=== PATIENT | male | born 1955 | race Caucasian/White ===

== ENCOUNTER 2018-06-07 18:39 | Observation (INO) | payer BC ==
[2018-06-07] MEDS ORDERED: ASPIRIN 81 MG CHEWABLE TABLET PO ONE (18:48)
[2018-06-07] MEDS ORDERED: DILTIAZEM 25MG/5ML VIAL IV ONE (18:51)
--- NOTE | 2018-06-07 18:55 | Emergency Department Record ---
History of Present Illness - General Stated Complaint: CHEST PAIN Time Seen by Provider: 06/07/18 18:48 Source: Patient Mode of Arrival: Ambulatory Limitations: No limitations - History of Present Illness Initial Comments: 62 yo male presents to ED for evaluation of palpitations and chest pain symptoms that began this evening. Patient reports a history of similar symptoms , was referred to Dr. Owusu's PA for further evaluation and was started on Metoprolol. Patient has not been seen and evaluated previously while he was having palpitations, and denies previous diagnosis. Patient reports chest discomfort with his symptoms as well. Patient denies previous heart problems, does report a history of HTN, elevated cholesterol, and does smoke. MD Complaint: Chest pain Onset/Timin -: Hour(s) Pain Radiation: None Severity: Moderate Quality: Heaviness Consistency: Intermittent Improves With: Nothing Worsens With: Nothing - Related Data Home Medications Medication Instructions Recorded Confirmed Last Taken Amlodipine Besylate 5 mg PO DAILY 06/07/18 06/07/18 06/07/18 Aspirin 325 mg PO DAILY 06/07/18 06/07/18 Unknown Atorvastatin Calcium 20 mg PO QHS 06/07/18 06/07/18 06/06/18 Enalapril Maleate 10 mg PO DAILY 06/07/18 06/07/18 Unknown Melatonin 10 mg PO QHS 06/07/18 06/07/18 Unknown Metoprolol Succinate 25 mg PO DAILY 06/07/18 06/07/18 06/07/18 Pantoprazole Sodium 40 mg PO DAILY 06/07/18 06/07/18 06/07/18 Sucralfate [Carafate] 1 g PO BID 06/07/18 06/07/18 Unknown Temazepam 15 mg PO QHS 06/07/18 06/07/18 Unknown Allergies Allergy/AdvReac Type Severity Reaction Status Date / Time No Known Drug Allergies Allergy Verified 06/07/18 19:08 Review of Systems Constitutional: Denies: Chills, Fever, Malaise, Night sweats Eyes: Denies: Eye discharge, Eye pain ENT: Denies: Congestion, Ear pain, Epistaxis Respiratory: Reports: Dyspnea. Denies: Cough Cardiovascular: Reports: Chest pain, Palpitations. Denies: Dyspnea on exertion Endocrine: Denies: Fatigue, Heat or cold intolerance Gastrointestinal: Denies: Abdominal pain, Nausea, Vomiting Genitourinary: Denies: Incontinence, Retention Musculoskeletal: Denies: Arthralgia, Back pain Skin: Denies: Bruising, Change in color Neurological: Denies: Abnormal gait, Confusion, Headache, Seizure Psychiatric: Denies: Anxiety Hematological/Lymphatic: Denies: Anemia, Blood Clots Physical Exam - General General Appearance: Alert, Oriented x3, Cooperative, Moderate distress Limitations: No limitations - Head Head exam: Atraumatic, Normocephalic, Normal inspection Head exam detail: negative: Abrasion, Contusion, Brandon's sign, General tenderness, Hematoma, Laceration - Eye Eye exam: Normal appearance. negative: Conjunctival injection, Periorbital swelling, Periorbital tenderness, Scleral icterus - ENT Ear exam: negative: Auricular hematoma, Auricular trauma Nasal Exam: negative: Active bleeding, Discharge, Dried blood, Foreign body Mouth exam: negative: Drooling, Laceration, Tongue elevation - Neck Neck exam: Normal inspection. negative: Meningismus, Tenderness - Respiratory Respiratory exam: Normal lung sounds bilaterally. negative: Rales, Respiratory distress, Rhonchi, Stridor - Cardiovascular Cardiovascular Exam: Irregular rhythm, Tachycardia - GI/Abdominal GI/Abdominal exam: Soft. negative: Rebound, Rigid, Tenderness - Rectal Rectal exam: Deferred - exam: Deferred - Extremities Extremities exam: Normal inspection. negative: Calf tenderness, Pedal edema, Tenderness - Back Back exam: Denies: CVA tenderness (R), CVA tenderness (L) - Neurological Neurological exam: Alert, Normal gait, Oriented X3 - Psychiatric Psychiatric exam: Anxious - Skin Skin exam: Normal color. negative: Abrasion Type of lesion: negative: abrasion Course - Reevaluation(s) Reevaluation #1: 06/07/18 18:50 EKG: Atrial Fibrillation 141 Normal axis, irregular R-R intervals T wave inversions III, ST changes V5/V6, likely rate related. patient was seen and examined, cardizem bolus and qttp ordered to infuse to achieve rate control for atrial fibrillation. Reevaluation #2: 06/07/18 19:36 Laboratory studies were reviewed and are grossly unremarkable for an acute process. Reevaluation #3: 06/07/18 19:39 Case was discussed with Sneha Templeton, will accept admission at this time. Will initiate treatment with Heparin as well. Reevaluation #4: 06/07/18 20:24 CXR: No acute process identified. Repeat pulse 90's-107 and rate controlled. Medical Decision Making - Lab Data Result diagrams: 06/07/18 18:55 06/07/18 18:55 Critical Care Time Critical Care Time: Yes Total Critical Care Time: 45 Critical Care Time: Diagnosis and treatment for atrial fibrillation with rapid ventricular response , exclusion of ACS. Disposition Disposition: Admit Clinical Impression: Atrial fibrillation Qualifiers: Atrial fibrillation type: paroxysmal Qualified Code(s): I48.0 - Paroxysmal atrial fibrillation Chest pain Qualifiers: Chest pain type: unspecified Qualified Code(s): R07.9 - Chest pain, unspecified Disposition: Still a Patient at [facility] Decision to Admit: Admit from ER Decision to Admit Date: 06/07/18 Decision to Admit Time: 19:39 Condition: (2) Stable Time of Disposition: 19:39 Quality - Quality Measures Quality Measures: N/A - Blood Pressure Screening Does Patient Have Any of the Following: Active Dx of HTN Blood Pressure Classification: Hypertensive Reading Systolic Measurement: 136 Diastolic Measurement: 113 Screening for High Blood Pressure: Patient Exclusion, Hx of HTN [[id number]]
[2018-06-07] MEDS ORDERED: 0.9 % SODIUM CHLORIDE 1000ML 1,000 ML IV SCH (19:00)
[2018-06-07 19:04] LABS: BASO % 0.3 % (0-6); EOS % 1.7 % (0-6); GRAN % 71.1 % (47-80); HEMATOCRIT 49.2 % (42.0-52.0); HEMOGLOBIN 16.5 gm/dl (14.0-18.0); LYMPH % 16.7 % (16-45); MEAN CELL VOLUME 86.9 fl (81-97); MEAN CORPUSCULAR HEMOGLOBIN 29.2 pg (27-33); MEAN CORPUSCULAR HGB CONC 33.5 g/dl (32-36); MONO % 10.2 % (0-9); PLATELET COUNT 331 K/uL (130-400); RED BLOOD COUNT 5.66 M/uL (4.40-5.70); RED CELL DISTRIBUTION WIDTH 13.7 % (11.5-14.5); WHITE BLOOD COUNT W/O DIFF 11.3 K/uL (4.2-12.2)
[2018-06-07] MEDS: DILTIAZEM HCL 125 MG in 0.9 % SODIUM CHLORIDE 100ML 100 ML IV SCH (19:04)
[2018-06-07 19:20] LABS: BLOOD UREA NITROGEN 13 mg/dL (8-23); CREATININE 0.9 mg/dL (0.7-1.2); EST GLOMERULAR FILTRATION RATE > 60 mL/min
[2018-06-07 19:21] LABS: TOTAL PROTEIN 6.5 g/dL (6.6-8.7)
[2018-06-07 19:23] LABS: GLUCOSE,RANDOM 111 mg/dL (74-109)
[2018-06-07 19:26] LABS: ALB/GLOB RATIO 1.8 (1.1-1.8); ALBUMIN 4.2 g/dL (4.0-5.0); ALKALINE PHOSPHATASE 68 U/L (40-129); ALT/SGPT 8 U/L (<41); AST/SGOT 19 U/L (10.0-50.0)
[2018-06-07 19:37] LABS: THYROID STIMULATING HORMONE 1.02 uIU/mL (0.270-4.20)
[2018-06-07] MEDS ORDERED: HEPARIN SODIUM 1000 UNIT/1 ML 10ML VIAL IVP ONE (19:42)
[2018-06-07] MEDS ORDERED: HEPARIN SODIUM/D5W 25,000 UNITS/500 ML BAG IV SCH (19:45)
[2018-06-07] MEDS ORDERED: 0.9 % SODIUM CHLORIDE 1000ML 1,000 ML IV PRN (21:24)
[2018-06-07] MEDS ORDERED: MELATONIN 5 MG TABLET PO SCH (22:00)
[2018-06-07] MEDS ORDERED: TEMAZEPAM 15 MG CAPSULE PO SCH (22:00)
[2018-06-07] MEDS ORDERED: ATORVASTATIN 20 MG TABLET PO SCH (22:00)
[2018-06-07] MEDS: SUCRALFATE 1 G/10 ML UD PO SCH (22:30)
[2018-06-08] MEDS: DILTIAZEM HCL 125 MG in 0.9 % SODIUM CHLORIDE 100ML 100 ML IV SCH (05:00)
[2018-06-08] MEDS ORDERED: PANTOPRAZOLE SODIUM 40 MG TABLET PO SCH ×2 (07:00→22:00)
[2018-06-08] MEDS: SUCRALFATE 1 G/10 ML UD PO SCH (07:35)
[2018-06-08] MEDS ORDERED: ENALAPRIL 5 MG TABLET PO SCH (10:00)
[2018-06-08] MEDS ORDERED: ASPIRIN 325 MG TABLET PO SCH (10:00)
[2018-06-08] MEDS ORDERED: UMECLIDINIUM BROMIDE (INCRUSE) 62.5MCG IH SCH (10:00)
[2018-06-08] MEDS ORDERED: AMLODIPINE BESYLATE 5MG TAB PO SCH (10:00)
[2018-06-08] MEDS ORDERED: METOPROLOL SUCC 25 MG TAB.ER PO SCH (10:00)
--- NOTE | 2018-06-08 10:14 | History & Physical ---
History of Present Illness - Date of Service Date of Service for History & Physical: 06/08/18 - History of Present Illness Admitting Diagnosis: Atrial Fibrillation with RVR. Chest pain History of Present Illness: Mr. Lopez is a 62 year-old male who presented to the ED on with complaint of palpitations and chest pain that began that evening. He reported that he had been experiencing intermittent palpitations for about 8 months prior. He was referred to cardiology by his PCP for palpitations, he saw Dr. Owusu's PA and was started on metoprolol. He had a stress test 04/21/18 and was found to have hypertensive response to exercise, no ischemia or arrhythmia. 24-hour holter monitor on 04/21/18 revealed normal findings, but 191 PVCs. His history includes HTN, hyperlipidemia, and smoking. In the ED, his pulse was 130-140s, BP 132/82, RR 20, 97% on room air. EKG demonstrated a fib, rate of 141, irregular R-R intervals, T wave inversions in lead III, ST changes V5/V6, likely rate related. Cardizem bolus and drip were started to control rate of a fib. Heparin gtt was started. CXR showed no acute process. He was admitted for continuation of cardizem and heparin drips to control a fib with RVR. 06/08/18 0920: Pt. is resting comfortably in bed. He states that his chest pain has improved, he is now experiencing only occasional palpitations. He remains in a-fib on tele, rate of 84 and irregular, BP 116/60, RR 18, 96% on room air. His first 2 sets of troponins were negative. His aptt was 36.7 this morning. Cardizem drip currently at 10mg/hour, heparin drip at 20ml/hour. Cardiology was consulted this morning for further evaluation. PCP: Dr. Hubbard Travel Screening - Travel/Exposure Within Last 30 Days Have you traveled within the last 30 days?: No - Travel/Exposure Within Last Year Have you traveled outside the [place] in the last year?: No - Additonal Travel Details Have you been exposed to anyone with a communicable illness?: No - Travel Symptoms Symptom Screening: None Review of Systems Constitutional: Denies: Chills, Fever, Malaise, Night sweats Eyes: Denies: Eye discharge, Eye pain ENT: Denies: Congestion, Ear pain, Epistaxis Respiratory: Reports: Dyspnea. Denies: Cough Cardiovascular: Reports: Chest pain, Palpitations. Denies: Dyspnea on exertion Endocrine: Denies: Fatigue, Heat or cold intolerance Gastrointestinal: Denies: Abdominal pain, Nausea, Vomiting Genitourinary: Denies: Incontinence, Retention Musculoskeletal: Denies: Arthralgia, Back pain Skin: Denies: Bruising, Change in color Neurological: Denies: Abnormal gait, Confusion, Headache, Seizure Psychiatric: Denies: Anxiety Hematological/Lymphatic: Denies: Anemia, Blood Clots Past Medical History - SOCIAL HISTORY Smoking Status: Current every day smoker Alcohol Use: Rare Drug Use: None - RESPIRATORY Hx Respiratory Disorders: Yes Hx COPD: Yes (uses Spiriva inhaler daily and Proair inhaler PRN) Hx Sleep Apnea: Yes (uses CPAP) Hx of CPAP: Yes - CARDIOVASCULAR Hx Cardio Disorders: Yes Hx Abnormal EKG: Yes Hx Hypertension: Yes Comment:: high cholesterol - NEURO Hx Neuro Disorders: No - GI Hx GI Disorders: Yes Hx Reflux: Yes - Hx Genitourinary Disorders: No - ENDOCRINE Hx Endocrine Disorders: No - MUSCULOSKELETAL Hx Musculoskeletal Disorders: No - PSYCH Hx Psych Problems: No - HEMATOLOGY/ONCOLOGY Hx Hematology/Oncology Disorders: No Family Medical History Any Significant Family History?: No H&P Meds/Allergies - Allergies Allergies: Allergies Allergy/AdvReac Type Severity Reaction Status Date / Time No Known Drug Allergies Allergy Verified 06/07/18 19:08 - Home Medications Home Medications Medication Instructions Recorded Confirmed Last Taken Amlodipine Besylate 5 mg PO DAILY 06/07/18 06/07/18 06/07/18 Aspirin 325 mg PO DAILY 06/07/18 06/07/18 Unknown Atorvastatin Calcium 20 mg PO QHS 06/07/18 06/07/18 06/06/18 Enalapril Maleate 10 mg PO DAILY 06/07/18 06/07/18 Unknown Metoprolol Succinate 25 mg PO DAILY 06/07/18 06/07/18 06/07/18 Pantoprazole Sodium 40 mg PO QHS 06/07/18 06/08/18 06/07/18 Tiotropium [place] [Spiriva 2 puff IH DAILY 06/07/18 06/07/18 06/07/18 06:00 Respimat] 2 puffs Temazepam 30 mg PO QHS 06/08/18 06/08/18 Unknown - Active Medications Active Medications: Current Medications Amlodipine Besylate (Norvasc) 5 mg PO DAILY [facility] Aspirin (Aspirin, Regular) 325 mg PO DAILY [facility] Atorvastatin Calcium (Lipitor) 20 mg PO QHS [facility] Last Admin: 06/07/18 22:29 Dose: 20 mg Enalapril Maleate (Vasotec) 10 mg PO DAILY [facility] Diltiazem HCl 125 mg/ Sodium (Chloride) 125 mls @ 10 mls/hr IV TITRATE JEAN; Protocol Last Titration: 06/08/18 05:00 Dose: Infused Heparin Sodium/Dextrose (Heparin Sodium/D5w) 25,000 units in 500 mls @ 1,000 mls/min IV TITRATE JEAN; Protocol Last Admin: 06/07/18 19:56 Dose: 10.02 unit/kg/hr, 20 mls/hr Sodium Chloride () 1,000 mls @ 42 mls/hr IV .[id number] PRN PRN Reason: LARGE VOLUME IV Metoprolol Succinate (Toprol Xl) 25 mg PO DAILY [facility] Pantoprazole Sodium (Protonix) 40 mg PO QHS [facility] Temazepam (Restoril) 30 mg PO QHS [facility] Physical Exam - Vital Signs Vital Signs: Vital Signs - Last 24 Hrs Temp Pulse Pulse Pulse Resp BP BP 06/08/18 08:39 96.1 F L 47 L 18 116/60 06/08/18 07:49 80 16 06/08/18 03:00 97.8 F 65 16 126/65 06/08/18 01:30 98.1 F 87 17 155/97 06/07/18 23:30 99.1 F 89 88 18 103/61 06/07/18 21:24 98.0 F 78 16 140/79 06/07/18 21:08 104 H 12 126/67 06/07/18 20:47 117 H 13 125/76 06/07/18 19:14 140 H 20 132/82 06/07/18 19:11 131 H 18 134/106 06/07/18 19:06 136 H 20 136/113 Pulse Ox 06/08/18 08:39 96 06/08/18 07:49 06/08/18 03:00 99 06/08/18 01:30 94 L 06/07/18 23:30 94 L 06/07/18 21:24 96 06/07/18 21:08 97 06/07/18 20:47 96 06/07/18 19:14 97 06/07/18 19:11 96 06/07/18 19:06 97 - General General Appearance: Alert, Oriented x3, Cooperative, No acute distress Limitations: No limitations - Head Head exam: Atraumatic, Normocephalic, Normal inspection Head exam detail: negative: Abrasion, Contusion, Brandon's sign, General tenderness, Hematoma, Laceration - Eye Eye exam: Normal appearance. negative: Conjunctival injection, Periorbital swelling, Periorbital tenderness, Scleral icterus - ENT Ear exam: negative: Auricular hematoma, Auricular trauma Nasal Exam: negative: Active bleeding, Discharge, Dried blood, Foreign body Mouth exam: negative: Drooling, Laceration, Tongue elevation - Neck Neck exam: Normal inspection. negative: Meningismus, Tenderness - Respiratory Respiratory exam: Normal lung sounds bilaterally. negative: Rales, Respiratory distress, Rhonchi, Stridor - Cardiovascular Cardiovascular Exam: Irregular rhythm, Tachycardia - GI/Abdominal GI/Abdominal exam: Soft. negative: Rebound, Rigid, Tenderness - Rectal Rectal exam: Deferred - exam: Deferred - Extremities Extremities exam: Normal inspection. negative: Calf tenderness, Pedal edema, Tenderness - Back Back exam: Denies: CVA tenderness (R), CVA tenderness (L) - Neurological Neurological exam: Alert, Normal gait, Oriented X3 - Psychiatric Psychiatric exam: Anxious - Skin Skin exam: Normal color. negative: Abrasion Type of lesion: negative: abrasion Results - Labs Result Diagrams: 06/07/18 18:55 06/07/18 18:55 Labs Last 24 Hours: Laboratory Results - last 24 hr 06/07/18 06/07/18 06/08/18 18:55 18:55 03:00 WBC 11.3 RBC 5.66 Hgb 16.5 Hct 49.2 MCV 86.9 MCH 29.2 MCHC 33.5 RDW 13.7 Plt Count 331 MPV 9.0 Gran % 71.1 Lymphocytes % 16.7 Monocytes % 10.2 H Eosinophils % 1.7 Basophils % 0.3 APTT Sodium 143 Potassium 3.7 Chloride 103 Carbon Dioxide 23.0 Anion Gap 17.0 H BUN 13 Creatinine 0.9 Estimated GFR > 60 Random Glucose 111 H Calcium 9.2 Total Bilirubin 0.40 AST 19 ALT 8 Alkaline Phosphatase 68 Troponin T < 0.010 < 0.010 Total Protein 6.5 L Albumin 4.2 Globulin 2.3 Albumin/Globulin Ratio 1.8 TSH 1.02 06/08/18 03:00 WBC RBC Hgb Hct MCV MCH MCHC RDW Plt Count MPV Gran % Lymphocytes % Monocytes % Eosinophils % Basophils % APTT 36.7 Sodium Potassium Chloride Carbon Dioxide Anion Gap BUN Creatinine Estimated GFR Random Glucose Calcium Total Bilirubin AST ALT Alkaline Phosphatase Troponin T Total Protein Albumin Globulin Albumin/Globulin Ratio TSH - Imaging and Cardiology Chest x-ray Status: Pending VTE H&P Assessment - Risk for VTE Risk for VTE: Yes Risk Level: High Risk Assessment Date: 06/08/18 Risk Assessment Time: 10:58 VTE Orders Placed or Will Be Placed: Yes Plan - Detailed Diagnosis and Plan (1) Atrial fibrillation Current Visit: Yes Status: Acute Qualifiers: Atrial fibrillation type: paroxysmal Qualified Code(s): I48.0 - Paroxysmal atrial fibrillation Base Code: I48.91 - UNSPECIFIED ATRIAL FIBRILLATION Comment: 06/08/18: -A fib with RVR upon presentation to ED -Cardizem drip at 10mg/hour and heparin drip at 20ml/hr (25,000 units/500ml) -Pt. remains in a fib on tele, rate mid 80's -Cardiology consult ordered for further evaluation (2) Chest pain Current Visit: Yes Status: Acute Qualifiers: Chest pain type: unspecified Qualified Code(s): R07.9 - Chest pain, unspecified Base Code: R07.9 - CHEST PAIN, UNSPECIFIED Comment: 06/08/18: -Chest pain resolved per patient -First 2 sets of troponins negative for elevation -cardiology consult ordered (3) Hypertension Current Visit: Yes Status: Acute Base Code: I10 - ESSENTIAL (PRIMARY) HYPERTENSION Comment: 06/08/18: -Hx of HTN, hypertension with exercise per stress test on 04/21/18 -Continuing home meds: enalapril 10mg daily, amlodipine 5mg daily, metoprolol 25mg daily -Will continue to monitor tele and vitals (4) At risk for deep venous thrombosis Current Visit: Yes Status: Acute Base Code: Z91.89 - OTH PERSONAL RISK FACTORS, NOT ELSEWHERE CLASSIFIED Comment: 06/08/18: -High risk for DVT due to afib with RVR -Heparin gtt at 20ml/hr (25,000 units/500ml bag) (5) Full code status Current Visit: Yes Status: Acute Base Code: Z78.9 - OTHER SPECIFIED HEALTH STATUS Comment: : -Pt. is a full code
--- NOTE | 2018-06-08 11:16 | Inpatient Certification ---
Inpatient Certification Admit to inpatient care: Based on my medical assessment, after consideration of patient's risk factors (age, co-morbidities and patient presenting symptoms and acuity), I expect that this patient will remain in the hospital greater than or equal to two midnights and that the services needed warrant inpatient care because: Patient Risk Factors: [age, comorbidities] Estimated length of stay: [24-48 hours] The patient may reasonably be expected to be discharged or transferred to a hospital within 96 hours after admission to [facility]. Services needed: [IV antiarrythmics and cardiology consult] Post hospital care (if known): [] I certify that my determination is in accordance with my understanding of Medicare requirements for reasonable and necessary inpatient services. 06/08/18 11:15
--- NOTE | 2018-06-08 11:44 | RADIOLOGY REPORT ---
EXAM: PORTABLE CHEST HISTORY: DIFFICULTY IN BREATHING. TECHNIQUE: A portable upright view of the chest was performed. FINDINGS: The heart size is normal. The lung reed are clear. No infiltrate or pleural effusion. Postop surgical change of the right shoulder girdle. IMPRESSION: NO ACUTE PULMONARY DISEASE PROCESS. JOB NUMBER: [id number] MTDD
--- NOTE | 2018-06-08 17:04 | Discharge Summary ---
Providers Discharge Summary Date: 06/08/18 Date of admission: 06/07/18 21:23 Expected Date of Discharge: 06/08/18 Attending physician: ALVIN SCHMIDT Primary care physician: MUMTAZ HUBBARD D.O. Consults: Consult Orders 06/08/18 08:40 Consult - Cardiology NOW Consulting Provider: YOANDY ADAMSON Physician Instructions: Reason For Exam: New onset a-fib with RVR Does pt have current kitchen bath designer?: Kat Comment: Has seen Kat SPEAR Physical Exam - Vital Signs Vital Signs: Vital Signs - Last 24 Hrs Temp Pulse Pulse Pulse Resp BP BP 06/08/18 15:00 65 18 122/56 06/08/18 11:45 55 L 106/56 06/08/18 10:28 81 06/08/18 10:24 84 06/08/18 08:39 96.1 F L 47 L 18 116/60 06/08/18 07:49 80 16 06/08/18 03:00 97.8 F 65 16 126/65 06/08/18 01:30 98.1 F 87 17 155/97 06/07/18 23:30 99.1 F 89 88 18 103/61 06/07/18 21:24 98.0 F 78 16 140/79 06/07/18 21:08 104 H 12 126/67 06/07/18 20:47 117 H 13 125/76 06/07/18 19:14 140 H 20 132/82 06/07/18 19:11 131 H 18 134/106 06/07/18 19:06 136 H 20 136/113 Pulse Ox 06/08/18 15:00 97 06/08/18 11:45 06/08/18 10:28 06/08/18 10:24 06/08/18 08:39 96 06/08/18 07:49 06/08/18 03:00 99 06/08/18 01:30 94 L 06/07/18 23:30 94 L 06/07/18 21:24 96 06/07/18 21:08 97 06/07/18 20:47 96 06/07/18 19:14 97 06/07/18 19:11 96 06/07/18 19:06 97 - General General Appearance: Alert, Oriented x3, Cooperative, No acute distress Limitations: No limitations - Head Head exam: Atraumatic, Normocephalic, Normal inspection Head exam detail: negative: Abrasion, Contusion, Brandon's sign, General tenderness, Hematoma, Laceration - Eye Eye exam: Normal appearance. negative: Conjunctival injection, Periorbital swelling, Periorbital tenderness, Scleral icterus - ENT Ear exam: negative: Auricular hematoma, Auricular trauma Nasal Exam: negative: Active bleeding, Discharge, Dried blood, Foreign body Mouth exam: negative: Drooling, Laceration, Tongue elevation - Neck Neck exam: Normal inspection. negative: Meningismus, Tenderness - Respiratory Respiratory exam: Normal lung sounds bilaterally. negative: Rales, Respiratory distress, Rhonchi, Stridor - Cardiovascular Cardiovascular Exam: Irregular rhythm, Tachycardia - GI/Abdominal GI/Abdominal exam: Soft. negative: Rebound, Rigid, Tenderness - Rectal Rectal exam: Deferred - exam: Deferred - Extremities Extremities exam: Normal inspection. negative: Calf tenderness, Pedal edema, Tenderness - Back Back exam: Denies: CVA tenderness (R), CVA tenderness (L) - Neurological Neurological exam: Alert, Normal gait, Oriented X3 - Psychiatric Psychiatric exam: Anxious - Skin Skin exam: Normal color. negative: Abrasion Type of lesion: negative: abrasion Hospitalization - Hospitalization Admission Diagnosis: Atrial Fibrillation with RVR. Chest pain - Problem List/Discharge Diagnosis (1) Atrial fibrillation Current Visit: Yes Status: Acute Discharge Diagnosis: Atrial fibrillation type: paroxysmal Qualified Code(s): I48.0 - Paroxysmal atrial fibrillation Base Code: I48.91 - UNSPECIFIED ATRIAL FIBRILLATION Comment: 06/08/18: -A fib with RVR converted to NSR at 1130 today -Cardizem drip was decreased to 5mg/hour, heparin drip at 20ml/hr (25,000 units/ 500ml) -Per cardiology- will d/c home with antiarrythmic- Flecainide (Rx written by Dr. Adamson), no need for anticoagulation since afib was less than 24 hours, okay to continue daily ASA -Plan to f/u with cardiology for echo OP (2) Chest pain Current Visit: Yes Status: Acute Discharge Diagnosis: Chest pain type: unspecified Qualified Code(s): R07.9 - Chest pain, unspecified Base Code: R07.9 - CHEST PAIN, UNSPECIFIED Comment: 06/08/18: -Chest pain resolved per patient -First 2 sets of troponins negative for elevation -cardiology consult ordered (3) Hypertension Current Visit: Yes Status: Acute Base Code: I10 - ESSENTIAL (PRIMARY) HYPERTENSION Comment: 06/08/18: -Hx of HTN, hypertension with exercise per stress test on 04/21/18 -Continuing home meds: enalapril 10mg daily, amlodipine 5mg daily, metoprolol 25mg daily -Will continue to monitor tele and vitals (4) At risk for deep venous thrombosis Current Visit: Yes Status: Acute Base Code: Z91.89 - OTH PERSONAL RISK FACTORS, NOT ELSEWHERE CLASSIFIED Comment: 06/08/18: -High risk for DVT due to afib with RVR -Heparin gtt at 20ml/hr (25,000 units/500ml bag) (5) Full code status Current Visit: Yes Status: Acute Base Code: Z78.9 - OTHER SPECIFIED HEALTH STATUS Comment: : -Pt. is a full code - Disposition Pt. to d/c home, plan to f/u with cardiology outpatient for echo - Hospitalization Course Disposition: Home, Self-Care Hospital Course: Mr. Lopez is a 62 year-old male who presented to the ED on with complaint of palpitations and chest pain that began that evening. He reported that he had been experiencing intermittent palpitations for about 8 months prior. He was referred to cardiology by his PCP for palpitations, he saw Dr. Adamson's PA and was started on metoprolol. He had a stress test 04/21/18 and was found to have hypertensive response to exercise, no ischemia or arrhythmia. 24-hour holter monitor on 04/21/18 revealed normal findings, but 191 PVCs. His history includes HTN, hyperlipidemia, and smoking. In the ED, his pulse was 130-140s, BP 132/82, RR 20, 97% on room air. EKG demonstrated a fib, rate of 141, irregular R-R intervals, T wave inversions in lead III, ST changes V5/V6, likely rate related. Cardizem bolus and drip were started to control rate of a fib. Heparin gtt was started. CXR showed no acute process. He was admitted for continuation of cardizem and heparin drips to control a fib with RVR. 10/16/18 0920: Pt. is resting comfortably in bed. He states that his chest pain has improved, he is now experiencing only occasional palpitations. He remains in a-fib on tele, rate of 84 and irregular, BP 116/60, RR 18, 96% on room air. His first 2 sets of troponins were negative. His aptt was 36.7 this morning. Cardizem drip currently at 10mg/hour, heparin drip at 20ml/hour. Cardiology was consulted this morning for further evaluation. 06/08/18 1700: -A fib with RVR converted to NSR at 1130 today -Cardizem drip was decreased to 5mg/hour, heparin drip at 20ml/hr (25,000 units/ 500ml) -Per cardiology- will d/c home with antiarrhythmic- Flecainide (Rx written by Dr. Adamson), no need for anticoagulation since afib was less than 24 hours, okay to continue daily ASA -Plan to f/u with cardiology for echo OP PCP: Dr. Hubbard Procedures: Imaging and X-Rays 06/07/18 18:48 CHEST 1 VIEW [RAD] Stat Cardiology Procedures 06/07/18 19:18 EKG NOW 06/07/18 21:24 Freelance Displayer .Continuous Abnormal Labs: Abnormal Lab Results 06/07/18 06/07/18 Range/Units 18:55 18:55 Monocytes % 10.2 H (0-9) % Anion Gap 17.0 H (7-16) Random Glucose 111 H (74-109) mg/dL Total Protein 6.5 L (6.6-8.7) g/dL Condition at Discharge: (2) Stable Discharge Diagnosis: Afib VTE Discharge VTE Reason For No Overlap Therapy: Not Indicated (Per cardiology- no prophylaxis needed for afib since less than 24 hours) Discharge Medications - Discharge Medications Prescriptions: Flecainide Acetate 50 mg PO BID #60 tablet Home Medications: Ambulatory Orders Amlodipine Besylate 5 mg PO DAILY 06/07/18 [Last Taken 06/07/18] Aspirin 325 mg PO DAILY 06/07/18 [Last Taken Unknown] Atorvastatin Calcium 20 mg PO QHS 06/07/18 [Last Taken 06/06/18] Enalapril Maleate 10 mg PO DAILY 06/07/18 [Last Taken Unknown] Metoprolol Succinate 25 mg PO DAILY 06/07/18 [Last Taken 06/07/18] Pantoprazole Sodium 40 mg PO QHS 06/07/18 [Last Taken 06/07/18] Tiotropium [place] [Spiriva Respimat] 2 puff IH DAILY 06/07/18 [Last Taken 06/07 06:00 2 puffs] Flecainide Acetate 50 mg PO BID #60 tablet 06/08/18 [Last Taken Unknown] Temazepam 30 mg PO QHS 06/08/18 [Last Taken Unknown] Discharge Plan - Discharge Instructions Activity at Discharge: Resume Usual Activities As Tolerated Diet at Discharge: Regular Diet Quality Measures - Quality Measures Quality Measures: Atrial Fibrillation & Atrial Flutter: Chronic Anticoagulation Therapy, Documentation of Current Medications in Medical Record, Screening for High Blood Pressure and F/U Documented - Current Medications Quality Measure: Measure #130: Documentation of Current Medications Documentation of Current Medications: <Current Medications Documented/Reviewed> [G8427] - Blood Pressure Screening Quality Measure: Screening for High Blood Pressure and Follow-Up Documented Does Patient Have Any of the Following: Active Dx of HTN Blood Pressure Classification: Hypertensive Reading Systolic Measurement: 136 Diastolic Measurement: 113 Screening for High Blood Pressure: Patient Exclusion, Hx of HTN [G9744] - Atrial Fibrillation and Atrial Flutter Quality Measure: Atrial Fibrillation & Atrial Flutter: Chronic Anticoagulation Therapy Does Patient Have Any of the Following: No CHADS2 Risk Stratification: Hypertension Risk Stratification Summary: No risk factors or only one moderate risk factor exists. [G8970] Anticoagulation Therapy: Patient Not Eligible [G8970] - Elder Abuse Suspicion Index EASI Reference Information: Katarina BRADY, Khushi C, Deedee D, Henok Wharton.Development and validation of a tool to assist physicians identification of elder abuse: The Elder Abuse Suspicion Index (EASI ). Journal of Elder Abuse and Neglect, 2008; 20 (3): 276-300.
[2018-06-08] MEDS ORDERED: TEMAZEPAM 15 MG CAPSULE PO SCH (22:00)
== END 2018-06-08 18:00 | disposition home or self-care (01) ==
LOC: ER 18:39 → MEDSURG 21:23
PROVIDERS: ADMIT Internal Medicine; ATTEND Internal Medicine
DX: I48.0 Paroxysmal atrial fibrillation (principal); I10 Essential (primary) hypertension; E78.00 Pure hypercholesterolemia, unspecified; F17.210 Nicotine dependence, cigarettes, uncomplicated; J44.9 Chronic obstructive pulmonary disease, unspecified
CPT/HCPCS: 99291 ×2; 96365; 96366; 96375; 96368; 85025; 85730; 80053; 84443; 84484 ×2; 71045; 93005; 93010; G0378 ×2; 99220; J7030

== ENCOUNTER 2018-08-22 18:36 | Emergency (ER) | payer BC ==
--- NOTE | 2018-08-22 18:59 | Emergency Department Record ---
History of Present Illness - General Chief Complaint: Back Pain/Injury Stated Complaint: LOWER BACK PAIN Time Seen by Provider: 08/22/18 18:41 Source: Patient Mode of Arrival: Ambulatory Limitations: No limitations - History of Present Illness Initial Comments: 63 yo male presents to ED for evaluation of right lower back pain that has been present for approximately 10-14 days. Patient reports that he strained his back lifting fire-wood at that time, has been taking Skelaxin and Naprosyn intermittently for his pain symptoms without much improvement, although he reports that the medications are . Patient denies numbness over the groin, bladder/bowel incontinence or retention, or lower extremity weakness. Patient denies any midline lumbar pain on examination. MD Complaint: Back pain Onset/Timin -: Days(s) Similar Symptoms Previously: Yes Place: Home Severity: Moderate Quality: Aching Consistency: Intermittent Improves With: Sitting upright Context: Turning/twisting Associated Symptoms: Denies other symptoms Treatments Prior to Arrival: NSAIDS - Related Data Previous Rx's Medication Instructions Recorded Flecainide Acetate 50 mg PO BID #60 tablet 06/08/18 Diazepam [Valium] 5 mg PO Q8H PRN #12 tab 08/22/18 Naproxen [Naprosyn] 500 mg PO Q12H #30 tablet 08/22/18 Allergies Allergy/AdvReac Type Severity Reaction Status Date / Time No Known Drug Allergies Allergy Verified 08/22/18 18:53 Review of Systems Constitutional: Denies: Chills, Fever, Malaise, Night sweats Eyes: Denies: Eye discharge, Eye pain ENT: Denies: Congestion, Ear pain, Epistaxis Respiratory: Denies: Cough, Dyspnea Cardiovascular: Denies: Chest pain, Dyspnea on exertion Endocrine: Denies: Fatigue, Heat or cold intolerance Gastrointestinal: Denies: Abdominal pain, Nausea, Vomiting Genitourinary: Denies: Incontinence, Retention Musculoskeletal: Reports: Back pain. Denies: Arthralgia, Gout, Joint swelling Skin: Denies: Bruising, Change in color Neurological: Denies: Abnormal gait, Confusion, Headache, Tingling, Tremors Psychiatric: Denies: Anxiety Hematological/Lymphatic: Denies: Anemia, Blood Clots Past Medical History - SOCIAL HISTORY Smoking Status: Current every day smoker Drug Use: None - RESPIRATORY Hx Respiratory Disorders: Yes Hx COPD: Yes (uses Spiriva inhaler daily and Proair inhaler PRN) Hx Sleep Apnea: Yes (uses CPAP) Hx of CPAP: Yes - CARDIOVASCULAR Hx Cardio Disorders: Yes Hx Abnormal EKG: Yes Hx Hypertension: Yes Comment:: high cholesterol - NEURO Hx Neuro Disorders: No - GI Hx GI Disorders: Yes Hx Reflux: Yes - Hx Genitourinary Disorders: No - ENDOCRINE Hx Endocrine Disorders: No - MUSCULOSKELETAL Hx Musculoskeletal Disorders: No - PSYCH Hx Psych Problems: No - HEMATOLOGY/ONCOLOGY Hx Hematology/Oncology Disorders: No Physical Exam - General General Appearance: Alert, Oriented x3, Cooperative, Mild distress, Other ( Easily stands to ambulate on examination, pain appears well controlled at his baseline.) Limitations: No limitations - Eye Eye exam: Normal appearance. negative: Conjunctival injection, Periorbital swelling, Periorbital tenderness, Scleral icterus - ENT Ear exam: negative: Auricular hematoma, Auricular trauma Nasal Exam: negative: Active bleeding, Discharge, Dried blood, Foreign body Mouth exam: negative: Drooling, Laceration, Muffled voice, Tongue elevation - Neck Neck exam: Normal inspection. negative: Meningismus, Tenderness - Respiratory Respiratory exam: Normal lung sounds bilaterally. negative: Respiratory distress, Rhonchi, Stridor, Wheezes - Cardiovascular Cardiovascular Exam: Regular rate, Normal rhythm, Normal heart sounds - GI/Abdominal GI/Abdominal exam: Soft. negative: Rebound, Rigid, Tenderness - Rectal Rectal exam: Deferred - exam: Deferred - Extremities Extremities exam: negative: Pedal edema, Tenderness - Back Back exam: Reports: Paraspinal tenderness (TTP over the right lumbar paraveterbral muscles on examination, no rash present, no mildine pain on examination.). Denies: CVA tenderness (R), CVA tenderness (L) - Neurological Neurological exam: Alert, Normal gait, Oriented X3 - Psychiatric Psychiatric exam: Normal affect, Normal mood - Skin Skin exam: Normal color. negative: Abrasion Type of lesion: negative: abrasion Course - Reevaluation(s) Reevaluation #1: 08/22/18 19:05 Patient was seen and examined. Patient has no midline tenderness on examination to suggest compression fracture Patient has no historical features or physical examination features c/w acute spinal cord compression syndrome Based on the above, radiographs do not appears to be of benefit. Will treat the patient symptomatically with Valium and Naprosyn as directed with instructions for follow-up in 3-5 days with his PCP. Disposition Disposition: Discharge Clinical Impression: Low back strain Qualifiers: Encounter type: initial encounter Qualified Code(s): S39.012A - Strain of muscle, fascia and tendon of lower back, initial encounter Disposition: Home, Self-Care Condition: (2) Stable Instructions: Low Back Strain (ED) Additional Instructions: Return to ED if your symptoms worsen or if you have any concerns. Naprosyn and Valium as directed. Follow-up with your family doctor in 3-5 days as directed for re-evaluation. Prescriptions: Diazepam [Valium] 5 mg PO Q8H PRN #12 tab PRN Reason: Pain - Mod To Severe (5-10) Naproxen [Naprosyn] 500 mg PO Q12H #30 tablet Forms: Patient Portal Access Time of Disposition: 18:59 Quality - Quality Measures Quality Measures: N/A - Blood Pressure Screening Does Patient Have Any of the Following: Active Dx of HTN Blood Pressure Classification: Pre-Hypertensive BP Reading Systolic Measurement: 170 Diastolic Measurement: 88 Screening for High Blood Pressure: Patient Exclusion, Hx of HTN [G9744]
[2018-08-22] MEDS: DIAZEPAM 5 MG TABLET PO ONE ×2 (19:11→19:12)
== END 2018-08-22 19:24 | disposition home or self-care (01) ==
LOC: ER 18:36
DX: S39.012A Strain of muscle, fascia and tendon of lower back, initial encounter (principal); X50.9XXA Other and unspecified overexertion or strenuous movements or postures, initial encounter; I10 Essential (primary) hypertension; F17.210 Nicotine dependence, cigarettes, uncomplicated; Y93.H9 Activity, other involving exterior property and land maintenance, building and construction; Y92.009 Unspecified place in unspecified non-institutional (private) residence as the place of occurrence of the external cause
CPT/HCPCS: 99282

== ENCOUNTER 2018-09-12 00:23 | Observation (INO) | payer BC ==
--- NOTE | 2018-09-12 00:42 | Emergency Department Record ---
History of Present Illness - General Chief Complaint: Back Pain/Injury Stated Complaint: BACK PAIN Time Seen by Provider: 09/12/18 00:32 Source: Patient Mode of Arrival: Ambulatory Limitations: No limitations - History of Present Illness Initial Comments: pt stood up from chair and had increased pain in back that went down his legs and dropped him to the floor. he has no numbness and no difficulty with bowel or bladder except constipation from narcotics. he has had this pain for 3 months. he is in physical therapy. he has had xrays. he had a mri of his neck but not his lower back MD Complaint: Back pain Onset/Timin -: Minutes(s) Place: Home Radiation: Left leg, Right leg Severity scale (1-10): 8 Quality: Stabbing Consistency: Constant Worsens With: Movement Context: Unknown Associated Symptoms: Denies other symptoms Treatments Prior to Arrival: Acetaminophen Treatment Prior to Arrival Comment:: Tramadol 100mg about 1.5 hrs ago - Related Data Home Medications Medication Instructions Recorded Confirmed Last Taken Acetaminophen [Tylenol 325Mg] 650 mg PO Q6H 09/12/18 09/12/18 09/11/18 Naloxegol Oxalate [Movantik] 25 mg PO DAILY 09/12/18 09/12/18 Unknown Tramadol HCl [Ultram] 50 mg PO QID 09/12/18 09/12/18 09/11/18 Previous Rx's Medication Instructions Recorded Flecainide Acetate 50 mg PO BID #60 tablet 06/08/18 Naproxen [Naprosyn] 500 mg PO Q12H #30 tablet 08/22/18 Diazepam [Valium] 5 mg PO Q8H #10 tab 09/12/18 Hydrocodone/Acetaminophen [[place] 1 tab PO Q6H PRN #7 tab 09/12/18 5mg/325mg] Ibuprofen [Motrin 600Mg] 600 mg PO Q6H #20 tablet 09/12/18 Allergies Allergy/AdvReac Type Severity Reaction Status Date / Time hydrocodone AdvReac ITCHING Verified 09/12/18 00:28 Travel Screening - Travel/Exposure Within Last 30 Days Have you traveled within the last 30 days?: No - Travel Symptoms Symptom Screening: None Review of Systems Reviewed: No additional complaints except as noted below Constitutional: Reports: As per HPI. Denies: Chills, Fever, Malaise, Night sweats, Weakness, Weight change Eyes: Reports: As per HPI. Denies: Eye discharge, Eye pain, Photophobia, Vision change ENT: Reports: As per HPI. Denies: Congestion, Dental pain, Ear pain, Epistaxis , Hearing loss, Throat pain Respiratory: Reports: As per HPI. Denies: Cough, Dyspnea, Hemoptysis, Stridor, Wheezes Cardiovascular: Reports: As per HPI. Denies: Arrhythmia, Chest pain, Dyspnea on exertion, Edema, Murmurs, Orthopnea, Palpitations, Paroxysmal nocturnal dyspnea, Rheumatic Fever, Syncope Endocrine: Reports: As per HPI. Denies: Fatigue, Heat or cold intolerance, Polydipsia, Polyuria Gastrointestinal: Reports: As per HPI. Denies: Abdominal pain, Constipation, Diarrhea, Hematemesis, Hematochezia, Melena, Nausea, Vomiting Genitourinary: Reports: As per HPI. Denies: Dysuria, Frequency, Hematuria, Incontinence, Retention, Testicular pain, Testicular mass, Urgency Musculoskeletal: Reports: As per HPI, Back pain. Denies: Arthralgia, Gout, Joint swelling, Myalgia, Neck pain Skin: Reports: As per HPI. Denies: Bruising, Change in color, Change in hair/ nails, Lesions, Pruritus, Rash Neurological: Reports: As per HPI. Denies: Abnormal gait, Confusion, Headache, Numbness, Paresthesias, Seizure, Tingling, Tremors, Vertigo, Weakness Psychiatric: Reports: As per HPI. Denies: Anxiety, Auditory hallucinations, Depression, Homicidal thoughts, Suicidal thoughts, Visual hallucinations Hematological/Lymphatic: Reports: As per HPI. Denies: Anemia, Blood Clots, Easy bleeding, Easy bruising, Swollen glands Past Medical History - SOCIAL HISTORY Smoking Status: Current every day smoker - RESPIRATORY Hx Respiratory Disorders: Yes Hx COPD: Yes (uses Spiriva inhaler daily and Proair inhaler PRN) Hx Sleep Apnea: Yes (uses CPAP) Hx of CPAP: Yes - CARDIOVASCULAR Hx Cardio Disorders: Yes Hx Abnormal EKG: Yes Hx Chest Pain: (Heart cath 08/20/18) Hx Hypertension: Yes Hx Irregular Heartbeat: Yes (A-fib) Comment:: high cholesterol - NEURO Hx Neuro Disorders: No - GI Hx GI Disorders: Yes Hx Reflux: Yes - Hx Genitourinary Disorders: No - ENDOCRINE Hx Endocrine Disorders: No - MUSCULOSKELETAL Hx Musculoskeletal Disorders: Yes Hx Back Injury: Yes (07/11) Comment:: MRI neck-C7 problems 08/2018 - PSYCH Hx Psych Problems: No - HEMATOLOGY/ONCOLOGY Hx Hematology/Oncology Disorders: No Family Medical History Any Significant Family History?: Yes Hx Cancer: Mother, Brother/Sister Hx Heart Disease: Mother Physical Exam - General General Appearance: Alert, Oriented x3, Cooperative, Mild distress - Head Head exam: Normal inspection - Eye Eye exam: Normal appearance, PERRL, EOMI Pupils: Normal accommodation - ENT ENT exam: Normal exam, Mucous membranes moist, Normal external ear exam, Normal orophraynx Ear exam: Normal external inspection. negative: External canal tenderness Nasal Exam: Normal inspection. negative: Discharge, Sinus tenderness Mouth exam: Normal external inspection, Tongue normal Teeth exam: Normal inspection. negative: Dental caries Throat exam: Normal inspection. negative: Tonsillar erythema, Tonsillar exudate - Neck Neck exam: Normal inspection, Full ROM. negative: Tenderness - Respiratory Respiratory exam: Normal lung sounds bilaterally. negative: Respiratory distress - Cardiovascular Cardiovascular Exam: Regular rate, Normal rhythm, Normal heart sounds - GI/Abdominal GI/Abdominal exam: Soft, Normal bowel sounds. negative: Tenderness - Rectal Rectal exam: Deferred - exam: Deferred - Extremities Extremities exam: Normal inspection, Full ROM, Normal capillary refill. negative: Tenderness - Back Back exam: Reports: Normal inspection, Full ROM, Muscle spasm, Tenderness. Denies: Rash noted - Neurological Neurological exam: Alert, CN II-XII intact, Normal gait, Oriented X3 - Psychiatric Psychiatric exam: Normal affect, Normal mood - Skin Skin exam: Dry, Intact, Normal color, Warm Course Vital Signs 09/12/18 00:30 Temperature 97.5 F L Pulse Rate 100 H Respiratory 16 Rate Blood Pressure 164/97 Pulse Ox 92 L Disposition Disposition: Discharge Clinical Impression: Lumbar radiculopathy, acute Disposition: Home, Self-Care Condition: (1) Good Instructions: Lumbar Radiculopathy (ED) Additional Instructions: follow up with family doctor. return sooner if worse. no lifting more then 5 lbs for 5 days. take colace daily for constipation Prescriptions: Diazepam [Valium] 5 mg PO Q8H #10 tab Hydrocodone/Acetaminophen [[place] 5mg/325mg] 1 tab PO Q6H PRN #7 tab PRN Reason: Pain - General Ibuprofen [Motrin 600Mg] 600 mg PO Q6H #20 tablet Forms: Patient Portal Access Quality - Quality Measures Quality Measures: N/A - Blood Pressure Screening Does Patient Have Any of the Following: No Blood Pressure Classification: Hypertensive Reading Systolic Measurement: 164 Diastolic Measurement: 97 Screening for High Blood Pressure: < First Hypertensive BP, F/U Documented > [ G8950] First Hypertensive Follow-up Interventions: Follow-up with rescreen GT 1 day and LT 4 weeks.
[2018-09-12] MEDS ORDERED: HYDROMORPHONE HCL 2 MG/ML VIAL IVP ONE (00:49)
[2018-09-12] MEDS ORDERED: ONDANSETRON HCL IV 4 MG/2 ML VIAL IVP ONE (00:49)
[2018-09-12] MEDS ORDERED: DIAZEPAM (VALIUM) 5MG/ML **10ML VIAL IVP ONE (00:49)
[2018-09-12] MEDS ORDERED: KETOROLAC 30 MG/ML VIAL IVP ONE (00:49)
[2018-09-12] MEDS ORDERED: HYDROMORPHONE HCL 2 MG/ML VIAL IM ONE (01:51)
--- NOTE | 2018-09-12 02:50 | Emergency Department Record ---
History of Present Illness - General Chief Complaint: Back Pain/Injury Stated Complaint: BACK PAIN Time Seen by Provider: 09/12/18 00:32 Source: Patient Limitations: No limitations - History of Present Illness Onset/Timin -: Minutes(s) Place: Home Radiation: Left leg, Right leg Severity scale (1-10): 8 Quality: Stabbing Consistency: Constant Worsens With: Movement Context: Unknown Associated Symptoms: Denies other symptoms Treatments Prior to Arrival: Acetaminophen Treatment Prior to Arrival Comment:: Tramadol 100mg about 1.5 hrs ago - Related Data Home Medications Medication Instructions Recorded Confirmed Last Taken Acetaminophen [Tylenol 325Mg] 650 mg PO Q6H 09/12/18 09/12/18 09/11/18 Naloxegol Oxalate [Movantik] 25 mg PO DAILY 09/12/18 09/12/18 Unknown Tramadol HCl [Ultram] 50 mg PO QID 09/12/18 09/12/18 09/11/18 Previous Rx's Medication Instructions Recorded Flecainide Acetate 50 mg PO BID #60 tablet 06/08/18 Naproxen [Naprosyn] 500 mg PO Q12H #30 tablet 08/22/18 Diazepam [Valium] 5 mg PO Q8H #10 tab 09/12/18 Hydrocodone/Acetaminophen [[place] 1 tab PO Q6H PRN #7 tab 09/12/18 5mg/325mg] Ibuprofen [Motrin 600Mg] 600 mg PO Q6H #20 tablet 09/12/18 Allergies Allergy/AdvReac Type Severity Reaction Status Date / Time hydrocodone AdvReac ITCHING Verified 09/12/18 00:28 Travel Screening - Travel/Exposure Within Last 30 Days Have you traveled within the last 30 days?: No - Travel Symptoms Symptom Screening: None Review of Systems Constitutional: Reports: As per HPI. Denies: Chills, Fever, Malaise, Night sweats, Weakness, Weight change Eyes: Reports: As per HPI. Denies: Eye discharge, Eye pain, Photophobia, Vision change ENT: Reports: As per HPI. Denies: Congestion, Dental pain, Ear pain, Epistaxis , Hearing loss, Throat pain Respiratory: Reports: As per HPI. Denies: Cough, Dyspnea, Hemoptysis, Stridor, Wheezes Cardiovascular: Reports: As per HPI. Denies: Arrhythmia, Chest pain, Dyspnea on exertion, Edema, Murmurs, Orthopnea, Palpitations, Paroxysmal nocturnal dyspnea, Rheumatic Fever, Syncope Endocrine: Reports: As per HPI. Denies: Fatigue, Heat or cold intolerance, Polydipsia, Polyuria Gastrointestinal: Reports: As per HPI. Denies: Abdominal pain, Constipation, Diarrhea, Hematemesis, Hematochezia, Melena, Nausea, Vomiting Genitourinary: Reports: As per HPI. Denies: Dysuria, Frequency, Hematuria, Incontinence, Retention, Testicular pain, Testicular mass, Urgency Musculoskeletal: Reports: As per HPI, Back pain. Denies: Arthralgia, Gout, Joint swelling, Myalgia, Neck pain Skin: Reports: As per HPI. Denies: Bruising, Change in color, Change in hair/ nails, Lesions, Pruritus, Rash Neurological: Reports: As per HPI. Denies: Abnormal gait, Confusion, Headache, Numbness, Paresthesias, Seizure, Tingling, Tremors, Vertigo, Weakness Psychiatric: Reports: As per HPI. Denies: Anxiety, Auditory hallucinations, Depression, Homicidal thoughts, Suicidal thoughts, Visual hallucinations Hematological/Lymphatic: Reports: As per HPI. Denies: Anemia, Blood Clots, Easy bleeding, Easy bruising, Swollen glands Past Medical History - SOCIAL HISTORY Smoking Status: Current every day smoker - RESPIRATORY Hx Respiratory Disorders: Yes Hx COPD: Yes (uses Spiriva inhaler daily and Proair inhaler PRN) Hx Sleep Apnea: Yes (uses CPAP) Hx of CPAP: Yes - CARDIOVASCULAR Hx Cardio Disorders: Yes Hx Abnormal EKG: Yes Hx Chest Pain: (Heart cath 08/20/18) Hx Hypertension: Yes Hx Irregular Heartbeat: Yes (A-fib) Comment:: high cholesterol - NEURO Hx Neuro Disorders: No - GI Hx GI Disorders: Yes Hx Reflux: Yes - Hx Genitourinary Disorders: No - ENDOCRINE Hx Endocrine Disorders: No - MUSCULOSKELETAL Hx Musculoskeletal Disorders: Yes Hx Back Injury: Yes (07/11) Comment:: MRI neck-C7 problems 08/2018 - PSYCH Hx Psych Problems: No - HEMATOLOGY/ONCOLOGY Hx Hematology/Oncology Disorders: No Family Medical History Any Significant Family History?: Yes Hx Cancer: Mother, Brother/Sister Hx Heart Disease: Mother Physical Exam - General Limitations: No limitations Course Vital Signs 09/12/18 09/12/18 00:30 01:35 Temperature 97.5 F L Pulse Rate 100 H Pulse Rate [ 92 H Pulse Ox Probe] Respiratory 16 16 Rate Blood Pressure 164/97 Blood Pressure 160/100 [Left Arm] Pulse Ox 92 L 88 L Disposition Disposition: Admit Clinical Impression: Lumbar radiculopathy, acute Disposition: Still a Patient at [facility] Decision to Admit: Admit from ER Decision to Admit Date: 09/12/18 Decision to Admit Time: 02:43 Condition: (1) Good Instructions: Lumbar Radiculopathy (ED) Additional Instructions: follow up with family doctor. return sooner if worse. no lifting more then 5 lbs for 5 days. take colace daily for constipation Prescriptions: Diazepam [Valium] 5 mg PO Q8H #10 tab Hydrocodone/Acetaminophen [[place] 5mg/325mg] 1 tab PO Q6H PRN #7 tab PRN Reason: Pain - General Ibuprofen [Motrin 600Mg] 600 mg PO Q6H #20 tablet Forms: Patient Portal Access Quality - Quality Measures Quality Measures: N/A - Blood Pressure Screening Does Patient Have Any of the Following: Active Dx of HTN Blood Pressure Classification: Hypertensive Reading Systolic Measurement: 164 Diastolic Measurement: 97 Screening for High Blood Pressure: Patient Exclusion, Hx of HTN [[id number]]
[2018-09-12] MEDS ORDERED: DIAZEPAM (VALIUM) 5MG/ML **10ML VIAL IVP PRN (03:16)
[2018-09-12] MEDS ORDERED: KETOROLAC 30 MG/ML VIAL IVP PRN (03:16)
[2018-09-12] MEDS ORDERED: ONDANSETRON HCL IV 4 MG/2 ML VIAL IVP PRN (03:16)
[2018-09-12] MEDS ORDERED: HYDROMORPHONE HCL 2 MG/ML VIAL IVP PRN (03:16)
[2018-09-12] MEDS: ACETAMINOPHEN 325 MG TAB PO SCH ×4 (03:38→21:19)
[2018-09-12] MEDS ORDERED: TEMAZEPAM 15 MG CAPSULE PO SCH (04:10)
[2018-09-12] MEDS ORDERED: DIAZEPAM 5 MG TABLET PO PRN (07:42)
[2018-09-12] MEDS: METOPROLOL SUCC 25 MG TAB.ER PO SCH (09:50)
[2018-09-12] MEDS: AMLODIPINE BESYLATE 5MG TAB PO SCH (09:50)
[2018-09-12] MEDS: FLECAINIDE ACETATE 50 MG TABLET PO SCH ×2 (09:50→21:20)
[2018-09-12] MEDS: ENALAPRIL 5 MG TABLET PO SCH (09:50)
[2018-09-12] MEDS ORDERED: NALOXEGOL PO SCH (10:00)
[2018-09-12] MEDS ORDERED: ASPIRIN 325 MG TABLET PO SCH (10:00)
[2018-09-12] MEDS: UMECLIDINIUM BROMIDE (INCRUSE) 62.5MCG IH SCH (10:01)
[2018-09-12] MEDS ORDERED: GABAPENTIN 300 MG CAPSULE PO ONE (12:31)
[2018-09-12] MEDS ORDERED: CYCLOBENZAPRINE 10MG TABLET PO ONE (12:34)
[2018-09-12] MEDS ORDERED: LIDOCAINE 5% PATCH TOP ONE (12:37)
[2018-09-12] MEDS: SENNOSIDES/DOCUSATE SODIUM UD CAPSULE PO SCH ×2 (12:46→21:20)
[2018-09-12] MEDS ORDERED: CEFTRIAXONE SODIUM 1 GM in 0.9 % SODIUM CHLORIDE 100ML 100 ML IVPB ONE (14:39)
[2018-09-12] MEDS ORDERED: ZOLPIDEM TARTRATE 5 MG TABLET PO PRN (14:51)
[2018-09-12] MEDS: AZITHROMYCIN 500 MG TABLET PO SCH (15:00)
--- NOTE | 2018-09-12 15:09 | History & Physical ---
History of Present Illness - Date of Service Date of Service for History & Physical: 09/12/18 - History of Present Illness Admitting Diagnosis: intractable back pain History of Present Illness: PMHx: COPD, A-fib, HTN, HLD, Chronic LBP, HLD, ALEJO ED course: Pt states that his back pain started roughly 2 months ago when he was twisting from loading a wood burner. He states that he has been going to PT but didn't think it was helping. He states that his doctor put him on pain pills but he doesn't think they are working. Yesterday he got up from a chair and felt a sharp/shooting pain from his lower back to his knees. He could not get his back straight after that or even stand up. This is the first time this has ever happened to him. He denies any numbness, problems with bowel or bladder except constipation from narcotics. He is also on temazepam 30mg nightly for insomnia but doesn't think it works well. Vitals: wnl except 88%on RA, BP 160/100, P 100. Labs: not drawn in the ED Imaging: not done in the ED because pt had XR done recently on his back. Admitted for intractable back pain. Hospital course: Pt states that the narcotics aren't really helping. Rates his pain upon arrival to the ED at 9/10 and now 7/10. Complains of pain only in the paraspinal muscles radiating down to the thighs b/l. Denies any SOB but pt was satting < 88 % on RA this morning. He has no h/o wearing O2 at home. CXR done and shows infiltrate consistent with PNA. Travel Screening - Travel/Exposure Within Last 30 Days Have you traveled within the last 30 days?: No - Travel/Exposure Within Last Year Have you traveled outside the [place] in the last year?: No - Additonal Travel Details Have you been exposed to anyone with a communicable illness?: No - Travel Symptoms Symptom Screening: Lack of Appetite Review of Systems Constitutional: Reports: As per HPI. Denies: Chills, Fever, Malaise, Night sweats, Weakness, Weight change Eyes: Reports: As per HPI. Denies: Eye discharge, Eye pain, Photophobia, Vision change ENT: Reports: As per HPI. Denies: Congestion, Dental pain, Ear pain, Epistaxis , Hearing loss, Throat pain Respiratory: Reports: As per HPI. Denies: Cough, Dyspnea, Hemoptysis, Stridor, Wheezes Cardiovascular: Reports: As per HPI. Denies: Arrhythmia, Chest pain, Dyspnea on exertion, Edema, Murmurs, Orthopnea, Palpitations, Paroxysmal nocturnal dyspnea, Rheumatic Fever, Syncope Endocrine: Reports: As per HPI. Denies: Fatigue, Heat or cold intolerance, Polydipsia, Polyuria Gastrointestinal: Reports: As per HPI. Denies: Abdominal pain, Constipation, Diarrhea, Hematemesis, Hematochezia, Melena, Nausea, Vomiting Genitourinary: Reports: As per HPI. Denies: Dysuria, Frequency, Hematuria, Incontinence, Retention, Testicular pain, Testicular mass, Urgency Musculoskeletal: Reports: As per HPI, Back pain. Denies: Arthralgia, Gout, Joint swelling, Myalgia, Neck pain Skin: Reports: As per HPI. Denies: Bruising, Change in color, Change in hair/ nails, Lesions, Pruritus, Rash Neurological: Reports: As per HPI. Denies: Abnormal gait, Confusion, Headache, Numbness, Paresthesias, Seizure, Tingling, Tremors, Vertigo, Weakness Psychiatric: Reports: As per HPI. Denies: Anxiety, Auditory hallucinations, Depression, Homicidal thoughts, Suicidal thoughts, Visual hallucinations Hematological/Lymphatic: Reports: As per HPI. Denies: Anemia, Blood Clots, Easy bleeding, Easy bruising, Swollen glands Past Medical History - SOCIAL HISTORY Smoking Status: Former smoker - RESPIRATORY Hx Respiratory Disorders: Yes Hx COPD: Yes (uses Spiriva inhaler daily and Proair inhaler PRN) Hx Sleep Apnea: Yes (uses CPAP) - CARDIOVASCULAR Hx Cardio Disorders: Yes Hx Abnormal EKG: Yes Hx Chest Pain: (Heart cath 08/20/18) Hx Hypertension: Yes Hx Irregular Heartbeat: Yes (A-fib) Comment:: high cholesterol - NEURO Hx Neuro Disorders: No - GI Hx GI Disorders: Yes Hx Reflux: Yes - Hx Genitourinary Disorders: No - ENDOCRINE Hx Endocrine Disorders: No Hx Diabetes: No Hx Thyroid Disease: No - MUSCULOSKELETAL Hx Musculoskeletal Disorders: Yes Hx Back Injury: Yes (07/11) Comment:: MRI neck-C7 problems 08/2018 - PSYCH Hx Psych Problems: No - HEMATOLOGY/ONCOLOGY Hx Hematology/Oncology Disorders: No Family Medical History Any Significant Family History?: Yes Hx Cancer: Mother, Brother/Sister Hx Heart Disease: Mother H&P Meds/Allergies - Allergies Allergies: Allergies Allergy/AdvReac Type Severity Reaction Status Date / Time hydrocodone AdvReac ITCHING Verified 09/12/18 00:28 - Home Medications Home Medications Medication Instructions Recorded Confirmed Last Taken Acetaminophen [Tylenol 325Mg] 650 mg PO Q6H 09/12/18 09/12/18 09/11/18 Naloxegol Oxalate [Movantik] 25 mg PO DAILY 09/12/18 09/12/18 Unknown Tramadol HCl [Ultram] 50 mg PO QID 09/12/18 09/12/18 09/11/18 Previous Rx's Medication Instructions Recorded Flecainide Acetate 50 mg PO BID #60 tablet 06/08/18 Naproxen [Naprosyn] 500 mg PO Q12H #30 tablet 08/22/18 Diazepam [Valium] 5 mg PO Q8H #10 tab 09/12/18 Hydrocodone/Acetaminophen [[place] 1 tab PO Q6H PRN #7 tab 09/12/18 5mg/325mg] Ibuprofen [Motrin 600Mg] 600 mg PO Q6H #20 tablet 09/12/18 - Active Medications Active Medications: Current Medications Acetaminophen (Tylenol 325mg) 650 mg PO Q6H [facility] Last Admin: 09/12/18 10:54 Dose: Not Given Amlodipine Besylate (Norvasc) 5 mg PO DAILY [facility] Last Admin: 09/12/18 09:50 Dose: 5 mg Aspirin (Aspirin, Regular) 325 mg PO DAILY [facility] Last Admin: 09/12/18 09:50 Dose: 325 mg Atorvastatin Calcium (Lipitor) 20 mg PO QHS [facility] Azithromycin (Zithromax) 500 mg PO DAILY [facility] Cyclobenzaprine HCl (Flexeril) 10 mg PO TID [facility] Enalapril Maleate (Vasotec) 10 mg PO DAILY [facility] Last Admin: 09/12/18 09:50 Dose: 10 mg Flecainide Acetate (Flecainide Acetate) 50 mg PO BID [facility] Last Admin: 09/12/18 09:50 Dose: 50 mg Gabapentin (Neurontin) 300 mg PO BID [facility] Ceftriaxone Sodium 1 gm/ (Sodium Chloride) 100 mls @ 200 mls/hr IVPB DAILY ONE Stop: 09/12/18 15:08 Ketorolac Tromethamine (Toradol) 15 mg IVP Q8H PRN PRN Reason: PAIN - MILD TO MODERATE (1-7) Last Admin: 09/12/18 09:01 Dose: 15 mg Metoprolol Succinate (Toprol Xl) 25 mg PO DAILY [facility] Last Admin: 09/12/18 09:50 Dose: 25 mg Ondansetron HCl (Zofran) 4 mg IVP Q8H PRN PRN Reason: NAUSEA Pantoprazole Sodium (Protonix) 40 mg PO QHS [facility] Senna/Docusate Sodium (Senna Plus) 2 each PO BID [facility] Last Admin: 09/12/18 12:46 Dose: 2 each Zolpidem Tartrate (Ambien) 5 mg PO QHS PRN PRN Reason: INSOMNIA Physical Exam - Vital Signs Vital Signs: Vital Signs - Last 24 Hrs Temp Pulse Pulse Resp BP BP Pulse Ox 09/12/18 10:10 92 L 09/12/18 10:08 102 H 20 92 L 09/12/18 08:45 98.4 F 115 H 20 142/97 91 L 09/12/18 08:23 98.5 F 176/87 09/12/18 03:07 98.5 F 94 H 20 176/87 97 09/12/18 02:42 95 H 16 150/101 88 L 09/12/18 01:35 92 H 16 160/100 88 L 09/12/18 00:30 97.5 F L 100 H 16 164/97 92 L - General General Appearance: Alert, Oriented x3, Cooperative, Mild distress (2/2 to pain pt is laying in bed on his side with knees bent toward chest) Limitations: Physical limitation (2/2 to pain) - Head Head exam: Normal inspection - Eye Eye exam: Normal appearance, PERRL, EOMI Pupils: Normal accommodation - ENT ENT exam: Normal exam, Mucous membranes moist, Normal external ear exam, Normal orophraynx Ear exam: Normal external inspection. negative: External canal tenderness Nasal Exam: Normal inspection. negative: Discharge, Sinus tenderness Mouth exam: Normal external inspection, Other (tongue discoloured). negative: Tongue elevation Teeth exam: negative: Gingival enlargement Throat exam: Normal inspection. negative: Tonsillar erythema, Tonsillar exudate - Neck Neck exam: Normal inspection, Full ROM. negative: Tenderness - Respiratory Respiratory exam: Normal lung sounds bilaterally. negative: Respiratory distress - Cardiovascular Cardiovascular Exam: Regular rate, Normal rhythm, Normal heart sounds - GI/Abdominal GI/Abdominal exam: Soft, Normal bowel sounds. negative: Tenderness - Rectal Rectal exam: Deferred - exam: Deferred - Extremities Extremities exam: Normal inspection, Normal capillary refill. negative: Tenderness - Back Back exam: Reports: Muscle spasm, Tenderness (with palpation of the paraspinal muscles of the lumbar area. no point tenderness of the spine. ). Denies: Full ROM (decreased 2/2 to pain), Rash noted - Neurological Neurological exam: Alert, Oriented X3 - Psychiatric Psychiatric exam: Normal affect, Normal mood - Skin Skin exam: Dry, Intact, Normal color, Warm Results - Labs Result Diagrams: 09/13/18 06:00 09/13/18 06:00 VTE H&P Assessment - Risk for VTE Risk for VTE: Yes Risk Level: High Risk Assessment Date: 09/12/18 Risk Assessment Time: 15:14 VTE Orders Placed or Will Be Placed: Yes Plan - Detailed Diagnosis and Plan (1) Lumbar radiculopathy, acute Current Visit: Yes Status: Acute Base Code: M54.16 - RADICULOPATHY, LUMBAR REGION Priority: High Comment: - opiods and benzos not helping for pt and he is willing to try other options. - Gabapentin 300mg BID JEAN, flexeril 10mg TID JEAN, toradol 15mg Q8hr PRN, tylenol 650mg Q6SCH, lidocaine patch, heat pad. - D/C'd opiods and benzo's. - pain currently 12/01. (2) Community acquired bacterial pneumonia Current Visit: Yes Status: Acute Base Code: J15.9 - UNSPECIFIED BACTERIAL PNEUMONIA Priority: High Comment: - CBC and CMP pending. - CXR shows infitrate. - Pt hypoxic on 1-2L NC, not on O2 at home. - Resp PRN treatments. - Continuous pulse ox. - Rocephin 1g QD, along with azithro 500mg QD. (3) Atrial fibrillation Current Visit: No Status: Chronic Qualifiers: Atrial fibrillation type: paroxysmal Qualified Code(s): I48.0 - Paroxysmal atrial fibrillation Base Code: I48.91 - UNSPECIFIED ATRIAL FIBRILLATION Priority: Medium Comment : - A fib currently rate controlled - Put on ekg monitor since giving further QT prolonging meds. - CHADSVASC =1, continue aspirin. (4) Hypertension Current Visit: No Status: Chronic Qualifiers: Hypertension type: essential hypertension Qualified Code(s): I10 - Essential (primary) hypertension Base Code: I10 - ESSENTIAL (PRIMARY) HYPERTENSION Comment: - Continue home meds as prescribed. (5) Insomnia Current Visit: Yes Status: Chronic Qualifiers: Insomnia type: unspecified Qualified Code(s): G47.00 - Insomnia, unspecified Base Code: G47.00 - INSOMNIA, UNSPECIFIED Priority: Low Comment: - D/C'd temazepam since pt said doesn't work well and shouldn't be on benzo and opiods together anyways. - Will try ambien tonight if needed since other meds like tricyclics/anti- depressants have increased seratonin and using muscle relaxer with seratonin effects. Also don't want to use banadryl 2/2 to increased QT interval effects. (6) Full code status Current Visit: No Status: Acute Base Code: Z78.9 - OTHER SPECIFIED HEALTH STATUS Comment: -Pt. is a full code (7) At risk for deep venous thrombosis Current Visit: No Status: Acute Base Code: Z91.89 - OTH PERSONAL RISK FACTORS, NOT ELSEWHERE CLASSIFIED Comment: - High risk given limited mobility, BMI, PNA, COPD, will check kidney function and then start pharmacologic anticoagulation accordingly. - Disposition Home pending improvement of sx.
[2018-09-12] MEDS: CYCLOBENZAPRINE 10MG TABLET PO SCH ×2 (15:13→21:20)
[2018-09-12 15:39] LABS: HEMATOCRIT 44.4 % (42.0-52.0); HEMOGLOBIN 14.6 gm/dl (14.0-18.0); MEAN CELL VOLUME 85.1 fl (81-97); MEAN CORPUSCULAR HGB CONC 32.9 g/dl (32-36); MEAN PLATELET VOLUME 9.4 fl (7.4-10.4); PLATELET COUNT 252 K/uL (130-400); RED BLOOD COUNT 5.22 M/uL (4.40-5.70); RED CELL DISTRIBUTION WIDTH 13.1 % (11.5-14.5)
[2018-09-12 15:46] LABS: WHITE BLOOD COUNT W/O DIFF 21.6 K/uL (4.2-12.2)
[2018-09-12 16:00] LABS: ALB/GLOB RATIO 1.3 (1.1-1.8); ALBUMIN 3.7 g/dL (4.0-5.0); ALKALINE PHOSPHATASE 87 U/L (55-149); ALT/SGPT 9 U/L (<41); AST/SGOT 38 U/L (10.0-50.0); BLOOD UREA NITROGEN 26 mg/dL (8-23); CREATININE 1.2 mg/dL (0.7-1.2); EST GLOMERULAR FILTRATION RATE > 60 mL/min; GLUCOSE,RANDOM 116 mg/dL (74-109); TOTAL PROTEIN 6.6 g/dL (6.6-8.7)
[2018-09-12] MEDS: IBUPROFEN 400 MG TABLET PO PRN ×2 (17:05→18:34)
[2018-09-12] MEDS ORDERED: MORPHINE SULFATE 10 MG/ML VIAL IVP ONE (18:47)
[2018-09-12] MEDS: GABAPENTIN 300 MG CAPSULE PO SCH ×2 (21:19→22:02)
[2018-09-12] MEDS ORDERED: ATORVASTATIN 20 MG TABLET PO SCH (22:00)
[2018-09-12] MEDS ORDERED: PANTOPRAZOLE SODIUM 40 MG TABLET PO SCH (22:00)
[2018-09-13] MEDS: IBUPROFEN 400 MG TABLET PO PRN (03:05)
[2018-09-13] MEDS: ACETAMINOPHEN 325 MG TAB PO SCH ×2 (03:06→09:30)
[2018-09-13 06:43] LABS: HEMATOCRIT 45.1 % (42.0-52.0); HEMOGLOBIN 14.7 gm/dl (14.0-18.0); MEAN CELL VOLUME 85.3 fl (81-97); MEAN CORPUSCULAR HEMOGLOBIN 27.8 pg (27-33); MEAN CORPUSCULAR HGB CONC 32.6 g/dl (32-36); MEAN PLATELET VOLUME 9.2 fl (7.4-10.4); PLATELET COUNT 243 K/uL (130-400); RED BLOOD COUNT 5.29 M/uL (4.40-5.70); RED CELL DISTRIBUTION WIDTH 13.2 % (11.5-14.5); WHITE BLOOD COUNT W/O DIFF 18.7 K/uL (4.2-12.2)
[2018-09-13 06:57] LABS: ALB/GLOB RATIO 1.2 (1.1-1.8); ALBUMIN 3.6 g/dL (4.0-5.0); ALKALINE PHOSPHATASE 89 U/L (55-149); ALT/SGPT 8 U/L (<41); AST/SGOT 41 U/L (10.0-50.0); BLOOD UREA NITROGEN 24 mg/dL (8-23); CREATININE 1.2 mg/dL (0.7-1.2); EST GLOMERULAR FILTRATION RATE > 60 mL/min; GLUCOSE,RANDOM 109 mg/dL (74-109); TOTAL PROTEIN 6.5 g/dL (6.6-8.7)
--- NOTE | 2018-09-13 07:32 | RADIOLOGY REPORT ---
EXAM: CHEST, TWO VIEWS HISTORY: HYPOXIA. TECHNIQUE: AP and lateral upright views of the chest were obtained. Comparison: 06/07/18. FINDINGS: There are low lung volumes. The heart projects borderline enlarged. The mediastinum appears normal. There is focal infiltrate within the left upper lobe consistent with pneumonia. There is minor atelectasis at the right lung base. There are no visible effusions. There is no pneumothorax. There are no acute osseous abnormalities. Post surgical changes are present within both shoulders. IMPRESSION: LEFT UPPER LOBE INFILTRATE CONSISTENT WITH PNEUMONIA. JOB NUMBER: [id number] [facility]
[2018-09-13] MEDS: GABAPENTIN 300 MG CAPSULE PO SCH (09:25)
[2018-09-13] MEDS: AZITHROMYCIN 500 MG TABLET PO SCH (09:26)
[2018-09-13] MEDS: ENALAPRIL 5 MG TABLET PO SCH (09:26)
[2018-09-13] MEDS: SENNOSIDES/DOCUSATE SODIUM UD CAPSULE PO SCH (09:27)
[2018-09-13] MEDS: FLECAINIDE ACETATE 50 MG TABLET PO SCH (09:27)
[2018-09-13] MEDS: AMLODIPINE BESYLATE 5MG TAB PO SCH (09:28)
[2018-09-13] MEDS: METOPROLOL SUCC 25 MG TAB.ER PO SCH (09:28)
[2018-09-13] MEDS: CYCLOBENZAPRINE 10MG TABLET PO SCH (09:28)
[2018-09-13] MEDS: UMECLIDINIUM BROMIDE (INCRUSE) 62.5MCG IH SCH (09:44)
[2018-09-13] MEDS ORDERED: ENOXAPARIN 40 MG/0.4 ML SYR SQ SCH (10:00)
[2018-09-13] MEDS ORDERED: KETOROLAC 30 MG/ML VIAL IVP ONE (10:22)
[2018-09-13] MEDS ORDERED: MORPHINE SULFATE 10 MG/ML VIAL IVP ONE ×2 (10:22→11:53)
--- NOTE | 2018-09-13 13:12 | Physician Progress Note ---
Subjective - Date Date of Physician Progress Note: 09/13/18 - Subjective Subjective Comment: Pt states that his pain is 9/10 today since moving around. He would like something additional for pain. Otherwise no complaints. No JOÃO. Objective - Vital Signs Vital Signs: Vital Signs - Last 24 Hrs Temp Pulse Pulse Resp BP Pulse Ox 09/13/18 09:47 110 H 16 93 L 09/13/18 08:46 98.4 F 72 12 124/54 94 L 09/13/18 08:34 16 09/13/18 08:32 97.8 F 110 H 16 183/94 96 09/13/18 06:30 91 L 09/13/18 04:16 94 H 156/87 91 L 09/13/18 03:00 98.5 F 100 H 18 183/102 88 L 09/12/18 19:00 98.2 F 96 H 16 163/81 90 L - General General Appearance: Alert, Oriented x3, Cooperative, Mild distress (2/2 to back pain) Limitations: Physical limitation (2/2 to pain) - Head Head exam: Normal inspection - Eye Eye exam: Normal appearance, PERRL, EOMI Pupils: Normal accommodation - ENT ENT exam: Normal exam, Mucous membranes moist, Normal external ear exam, Normal orophraynx Ear exam: Normal external inspection. negative: External canal tenderness Nasal Exam: Normal inspection. negative: Discharge, Sinus tenderness Mouth exam: Normal external inspection, Other (tongue discoloured). negative: Tongue elevation Teeth exam: negative: Gingival enlargement Throat exam: Normal inspection. negative: Tonsillar erythema, Tonsillar exudate - Neck Neck exam: Normal inspection, Full ROM. negative: Tenderness - Respiratory Respiratory exam: Normal lung sounds bilaterally. negative: Respiratory distress - Cardiovascular Cardiovascular Exam: Normal rhythm, Normal heart sounds, Tachycardia - GI/Abdominal GI/Abdominal exam: Soft, Normal bowel sounds. negative: Tenderness - Rectal Rectal exam: Deferred - exam: Deferred - Extremities Extremities exam: Normal inspection, Normal capillary refill. negative: Tenderness - Back Back exam: Reports: Muscle spasm, Paraspinal tenderness (lumbar region). Denies : Full ROM (decreased 2/2 to pain), Rash noted - Neurological Neurological exam: Alert, Oriented X3 - Psychiatric Psychiatric exam: Normal affect, Normal mood - Skin Skin exam: Dry, Intact, Normal color, Warm Assessment and Plan - Assessment and Plan (1) Lumbar radiculopathy, acute Current Visit: Yes Status: Acute Base Code: M54.16 - RADICULOPATHY, LUMBAR REGION Priority: High Comment: - opiods and benzos not helping much for pt and he is willing to try other options. - Gabapentin 300mg BID JEAN, flexeril 10mg TID JEAN, tylenol 650mg Q6SCH, lidocaine patch, heat pad. - pain currently 05/03. - One time dose of Morphine 1mg and toradol 30mg. (2) Community acquired bacterial pneumonia Current Visit: Yes Status: Acute Base Code: J15.9 - UNSPECIFIED BACTERIAL PNEUMONIA Priority: High Comment: - CBC and CMP pending. - CXR shows infitrate. - Not requiring O2 at this time. - Resp PRN treatments. - Continuous pulse ox. - Rocephin 1g QD, along with azithro 500mg QD. (3) Atrial fibrillation Current Visit: No Status: Chronic Qualifiers: Atrial fibrillation type: paroxysmal Qualified Code(s): I48.0 - Paroxysmal atrial fibrillation Base Code: I48.91 - UNSPECIFIED ATRIAL FIBRILLATION Priority: Medium Comment : - A fib currently rate controlled - Put on nuclear monitoring technician since giving further QT prolonging meds. - CHADSVASC =1, continue aspirin. (4) Hypertension Current Visit: No Status: Chronic Qualifiers: Hypertension type: essential hypertension Qualified Code(s): I10 - Essential (primary) hypertension Base Code: I10 - ESSENTIAL (PRIMARY) HYPERTENSION Comment: - Continue home meds as prescribed. (5) Insomnia Current Visit: Yes Status: Chronic Qualifiers: Insomnia type: unspecified Qualified Code(s): G47.00 - Insomnia, unspecified Base Code: G47.00 - INSOMNIA, UNSPECIFIED Priority: Low Comment: - D/C'd temazepam since pt said doesn't work well and shouldn't be on benzo and opiods together anyways. - Will try ambien tonight if needed since other meds like tricyclics/anti- depressants have increased seratonin and using muscle relaxer with seratonin effects. Also don't want to use banadryl 2/2 to increased QT interval effects. (6) Full code status Current Visit: No Status: Acute Base Code: Z78.9 - OTHER SPECIFIED HEALTH STATUS Comment: -Pt. is a full code (7) At risk for deep venous thrombosis Current Visit: No Status: Acute Base Code: Z91.89 - OTH PERSONAL RISK FACTORS, NOT ELSEWHERE CLASSIFIED Comment: - High risk given limited mobility, BMI, PNA, COPD, will check kidney function and then start pharmacologic anticoagulation accordingly. - Disposition Disposition: Home pending improvement of sx. Results - Labs Result Diagrams: 09/13/18 06:25 09/13/18 06:25 Labs Last 24 Hours: Laboratory Results - last 24 hr 09/12/18 09/12/18 09/13/18 15:20 15:20 06:25 WBC 21.6 H* 18.7 H RBC 5.22 5.29 Hgb 14.6 14.7 Hct 44.4 45.1 MCV 85.1 85.3 MCH 28.0 27.8 MCHC 32.9 32.6 RDW 13.1 13.2 Plt Count 252 243 MPV 9.4 9.2 Neutrophils % 80.0 80.0 Band Neutrophils % 0.0 0.0 Eosinophils % Not Reportable Not Reportable Basophils % Not Reportable Not Reportable Lymphocytes 8.0 L 10.0 L Monocytes 9.0 9.0 Basophils 0.0 0.0 Eosinophil Count 3.0 1.0 Sodium 140 Potassium 4.1 Chloride 98 Carbon Dioxide 29.0 Anion Gap 13.0 BUN 26 H Creatinine 1.2 Estimated GFR > 60 Random Glucose 116 H Calcium 12.1 H Total Bilirubin 0.30 AST 38 ALT 9 Alkaline Phosphatase 87 Total Protein 6.6 Albumin 3.7 L Globulin 2.9 Albumin/Globulin Ratio 1.3 09/13/18 06:25 WBC RBC Hgb Hct MCV MCH MCHC RDW Plt Count MPV Neutrophils % Band Neutrophils % Eosinophils % Basophils % Lymphocytes Monocytes Basophils Eosinophil Count Sodium 143 Potassium 3.8 Chloride 101 Carbon Dioxide 29.0 Anion Gap 13.0 BUN 24 H Creatinine 1.2 Estimated GFR > 60 Random Glucose 109 Calcium 12.6 H Total Bilirubin 0.40 AST 41 ALT 8 Alkaline Phosphatase 89 Total Protein 6.5 L Albumin 3.6 L Globulin 2.9 Albumin/Globulin Ratio 1.2 DVT/PE Assessment - Risk for VTE Risk for VTE: No Risk Level: High Risk Assessment Date: 09/12/18 Risk Assessment Time: 15:14 VTE Orders Placed or Will Be Placed: Yes - Active Medicaitons Current Medications: Current Medications Acetaminophen (Tylenol 325mg) 650 mg PO Q6H [facility] Last Admin: 09/13/18 09:30 Dose: 650 mg Amlodipine Besylate (Norvasc) 5 mg PO DAILY [facility] Last Admin: 09/13/18 09:28 Dose: 5 mg Atorvastatin Calcium (Lipitor) 20 mg PO QHS [facility] Last Admin: 09/12/18 21:20 Dose: 20 mg Azithromycin (Zithromax) 500 mg PO DAILY [facility] Last Admin: 09/13/18 09:26 Dose: 500 mg Cyclobenzaprine HCl (Flexeril) 10 mg PO TID [facility] Last Admin: 09/13/18 09:28 Dose: 10 mg Enalapril Maleate (Vasotec) 10 mg PO DAILY [facility] Last Admin: 09/13/18 09:26 Dose: 10 mg Enoxaparin Sodium (Lovenox) 40 mg SQ DAILY [facility] Last Admin: 09/13/18 09:25 Dose: 40 mg Flecainide Acetate (Flecainide Acetate) 50 mg PO BID [facility] Last Admin: 09/13/18 09:27 Dose: 50 mg Gabapentin (Neurontin) 300 mg PO BID [facility] Last Admin: 09/13/18 09:25 Dose: 300 mg Ibuprofen (Motrin 400mg) 800 mg PO Q8H PRN PRN Reason: pain Last Admin: 09/13/18 03:05 Dose: 800 mg Metoprolol Succinate (Toprol Xl) 25 mg PO DAILY [facility] Last Admin: 09/13/18 09:28 Dose: 25 mg Ondansetron HCl (Zofran) 4 mg IVP Q8H PRN PRN Reason: NAUSEA Pantoprazole Sodium (Protonix) 40 mg PO QHS [facility] Last Admin: 09/12/18 21:20 Dose: 40 mg Senna/Docusate Sodium (Senna Plus) 2 each PO BID [facility] Last Admin: 09/13/18 09:27 Dose: 2 each Zolpidem Tartrate (Ambien) 5 mg PO QHS PRN PRN Reason: INSOMNIA Last Admin: 09/12/18 21:29 Dose: 5 mg AMI Plan - Labs Result Diagrams: 09/13/18 06:25 09/13/18 06:25
--- NOTE | 2018-09-13 15:18 | Physical Therapy Tx Note ---
Physical Therapy Tx Note - Treatment Note Physical Therapy Tx Note: Detail (Pt not seen today. Hold pending further follow-up by Dr. Foley, patient may transfer for pain management. Will check tomorrow.)
[2018-09-13] MEDS ORDERED: HYDROMORPHONE HCL 2 MG/ML VIAL IVP PRN (15:22)
--- NOTE | 2018-09-13 15:59 | Discharge Summary ---
Providers Discharge Summary Date: 09/13/18 Date of admission: 09/12/18 03:01 Expected Date of Discharge: 09/13/18 Attending physician: ALVIN SCHMIDT Primary care physician: MUMTAZ PEREZ D.O. Physical Exam - Vital Signs Vital Signs: Vital Signs - Last 24 Hrs Temp Pulse Pulse Resp BP Pulse Ox 09/13/18 09:47 110 H 16 93 L 09/13/18 08:46 98.4 F 72 12 124/54 94 L 09/13/18 08:34 16 09/13/18 08:32 97.8 F 110 H 16 183/94 96 09/13/18 06:30 91 L 09/13/18 04:16 94 H 156/87 91 L 09/13/18 03:00 98.5 F 100 H 18 183/102 88 L 09/12/18 19:00 98.2 F 96 H 16 163/81 90 L - General General Appearance: Alert, Oriented x3, Cooperative, Mild distress (2/2 to back pain) Limitations: Physical limitation (2/2 to pain) - Head Head exam: Normal inspection - Eye Eye exam: Normal appearance, PERRL, EOMI Pupils: Normal accommodation - ENT ENT exam: Normal exam, Mucous membranes moist, Normal external ear exam, Normal orophraynx Ear exam: Normal external inspection. negative: External canal tenderness Nasal Exam: Normal inspection. negative: Discharge, Sinus tenderness Mouth exam: Normal external inspection, Other (tongue discoloured). negative: Tongue elevation Teeth exam: negative: Gingival enlargement Throat exam: Normal inspection. negative: Tonsillar erythema, Tonsillar exudate - Neck Neck exam: Normal inspection, Full ROM. negative: Tenderness - Respiratory Respiratory exam: Normal lung sounds bilaterally. negative: Respiratory distress - Cardiovascular Cardiovascular Exam: Normal rhythm, Normal heart sounds, Tachycardia - GI/Abdominal GI/Abdominal exam: Soft, Normal bowel sounds. negative: Tenderness - Rectal Rectal exam: Deferred - exam: Deferred - Extremities Extremities exam: Normal inspection, Normal capillary refill. negative: Tenderness - Back Back exam: Reports: Muscle spasm, Paraspinal tenderness (lumbar region). Denies : Full ROM (decreased 2/2 to pain), Rash noted - Neurological Neurological exam: Alert, Oriented X3 - Psychiatric Psychiatric exam: Normal affect, Normal mood - Skin Skin exam: Dry, Intact, Normal color, Warm Hospitalization - Hospitalization Admission Diagnosis: intractable back pain - Problem List/Discharge Diagnosis (1) Lumbar radiculopathy, acute Current Visit: Yes Status: Acute Base Code: M54.16 - RADICULOPATHY, LUMBAR REGION Comment: - dilaudid and valium not helping much for pt and he is willing to try other options. - Gabapentin 300mg BID JEAN, flexeril 10mg TID JEAN, tylenol 650mg Q6SCH, lidocaine patch, heat pad are also not helping. - pain currently 05/03. - Toradol also given without relief. - Pt would like to be transferred to [facility] where neurosurgery is present. (2) Community acquired bacterial pneumonia Current Visit: Yes Status: Acute Base Code: J15.9 - UNSPECIFIED BACTERIAL PNEUMONIA Comment: - WBC trending down. - CXR shows infitrate. - Not requiring O2 at this time. - Resp PRN treatments. - Continuous pulse ox. - Rocephin 1g QD, along with azithro 500mg QD. Day 2 of abx. (3) Atrial fibrillation Current Visit: No Status: Chronic Discharge Diagnosis: Atrial fibrillation type: paroxysmal Qualified Code(s): I48.0 - Paroxysmal atrial fibrillation Base Code: I48.91 - UNSPECIFIED ATRIAL FIBRILLATION Comment: - A fib currently rate controlled - Put on manager monitoring since giving further QT prolonging meds. - CHADSVASC =1, continue aspirin. (4) Hypertension Current Visit: No Status: Chronic Discharge Diagnosis: Hypertension type: essential hypertension Qualified Code(s): I10 - Essential (primary) hypertension Base Code: I10 - ESSENTIAL (PRIMARY) HYPERTENSION Comment: - Continue home meds as prescribed. (5) Insomnia Current Visit: Yes Status: Chronic Discharge Diagnosis: Insomnia type: unspecified Qualified Code(s): G47.00 - Insomnia, unspecified Base Code: G47.00 - INSOMNIA, UNSPECIFIED Comment: - D/C'd temazepam since pt said doesn't work well and shouldn't be on benzo and opiods together anyways. - Will try ambien tonight if needed since other meds like tricyclics/anti- depressants have increased seratonin and using muscle relaxer with seratonin effects. Also don't want to use banadryl 2/2 to increased QT interval effects. (6) Full code status Current Visit: No Status: Acute Base Code: Z78.9 - OTHER SPECIFIED HEALTH STATUS Comment: -Pt. is a full code (7) At risk for deep venous thrombosis Current Visit: No Status: Acute Base Code: Z91.89 - OTH PERSONAL RISK FACTORS, NOT ELSEWHERE CLASSIFIED Comment: - High risk given limited mobility, BMI, PNA, COPD, will check kidney function and then start pharmacologic anticoagulation accordingly. - Disposition Transfer to [facility]. - Hospitalization Course Disposition: Acute Care Hospital Transfer Hospital Course: PMHx: COPD, A-fib, HTN, HLD, Chronic LBP, HLD, ALEJO ED course 09/12: Pt states that his back pain started roughly 2 months ago when he was twisting from loading a wood burner. He states that he has been going to PT but didn't think it was helping/ he states that it was making things worse. He states that his doctor put him on pain pills but he doesn't think they are working. Yesterday he got up from a chair and felt a sharp/shooting pain from his lower back to his knees. He could not get his back straight after that or even stand up. This is the first time this has ever happened to him. He denies any numbness , problems with bowel or bladder except constipation from narcotics. He is also on temazepam 30mg nightly for insomnia but doesn't think it works well. Vitals: wnl except 88%on RA, BP 160/100, P 100. Labs: not drawn in the ED Imaging: not done in the ED because pt had XR done recently on his back. Admitted for intractable back pain. Hospital course09/12 -09/13: 09/12: Pt stated that the narcotics weren't really helping. He was receiving dilaudid 1mg Q4 hours and Valium 5mg Q8 hours upon admission. Rated his pain upon arrival to the ED at 9/10 and then decreased to 7/10 a few hours later. He was open to trying non-narcotic medication for his back pain since the opioids and benzos were not working well. We switched his medications to gabapentin, flexeril, lidocaine patch, toradol, and heating pad x 1 day. This also did not help his pain and he ended up requiring more dilaudid and morphine without any relief. Pt required 1L of O2, 2/2 to hypoxia < 88% on RA. CXR was done and pt noted to have infiltrate. Pt was started on rocephin and azithro for CAP. Pt was also having low O2 saturation on RA in the ED but it was not addressed at that time. Temazepam was switched to ambien given that he was using valium for muscle spasm and receiving opioids. He was put on ambien to try instead only if needed. 09/13: Pt's O2 sat on RA improved with abx and doesn't require O2 today. His pain on is 9/10. Since admission he has not been able to ambulate 2/2 to pain shooting down his legs. We ordered PT/OT to try to help him mobilize but he was unable to stand 2/2 to pain, he would only get up to the edge of the bed 2/2 to pain. He does today complain of some numbness in the inner thigh area but denies any numbness in the penile area. He states that there is tingling and numbness in his entire thighs to his knees. No trouble with urination but has not stooled x 3 days, states that this is 2/2 to his tramadol that he took at home. Given the severity of his pain that is still intractable and the fact that we do not have neurosurgery or MRI at this facility, I think it is appropriate and needed that this pt be transferred to [facility] for further evaluation of back pain by MRI and treatment of his back pain by a specialist per IM's discretion. I have told the pt in great detail that transfer may not be covered although seems appropriate. He is ok with this plan and would like to continue with transfer at this time. [facility] accepted transfer for the pt. Procedures: Imaging and X-Rays 09/12/18 11:30 CHEST 2 VIEWS [RAD] Stat Cardiology Procedures 09/12/18 12:37 [facility] .Continuous Abnormal Labs: Abnormal Lab Results 09/12/18 09/12/18 09/13/18 Range/Units 15:20 15:20 06:25 WBC 21.6 H* 18.7 H (4.2-12.2) K/uL Lymphocytes 8.0 L 10.0 L (16-45) % BUN 26 H (8-23) mg/dL Random Glucose 116 H (74-109) mg/dL Calcium 12.1 H (8.8-10.2) mg/dL Total Protein (6.6-8.7) g/dL Albumin 3.7 L (4.0-5.0) g/dL 09/13/18 Range/Units 06:25 WBC (4.2-12.2) K/uL Lymphocytes (16-45) % BUN 24 H (8-23) mg/dL Random Glucose (74-109) mg/dL Calcium 12.6 H (8.8-10.2) mg/dL Total Protein 6.5 L (6.6-8.7) g/dL Albumin 3.6 L (4.0-5.0) g/dL Condition at Discharge: (2) Stable Discharge Medications - Discharge Medications Home Medications: Ambulatory Orders Amlodipine Besylate 5 mg PO DAILY 06/07/18 [Last Taken 09/11/18] Aspirin 325 mg PO DAILY 06/07/18 [Last Taken 09/11/18] Atorvastatin Calcium 20 mg PO QHS 06/07/18 [Last Taken 09/11/18] Enalapril Maleate 10 mg PO DAILY 06/07/18 [Last Taken 09/11/18] Metoprolol Succinate 25 mg PO DAILY 06/07/18 [Last Taken 09/11/18] Pantoprazole Sodium 40 mg PO QHS 06/07/18 [Last Taken 09/11/18] Tiotropium [place] [Spiriva Respimat] 2 puff IH DAILY 06/07/18 [Last Taken 09/11] Flecainide Acetate 50 mg PO BID #60 tablet 06/08/18 [Last Taken 09/11/18] Temazepam 30 mg PO QHS 06/08/18 [Last Taken 09/11/18] Naproxen [Naprosyn] 500 mg PO Q12H #30 tablet 08/22/18 [Last Taken 09/11/18] Acetaminophen [Tylenol 325Mg] 650 mg PO Q6H 09/12/18 [Last Taken 09/11/18] Naloxegol Oxalate [Movantik] 25 mg PO DAILY 09/12/18 [Last Taken Unknown] Tramadol HCl [Ultram] 50 mg PO QID 09/12/18 [Last Taken 09/11/18] Discharge Plan - Discharge Instructions Activity at Discharge: As Per Physical Therapy Diet at Discharge: Advance to Usual Diet Instructions: Lumbar Radiculopathy (ED) Additional Instructions: follow up with family doctor. return sooner if worse. no lifting more then 5 lbs for 5 days. take colace daily for constipation Quality Measures - Quality Measures Quality Measures: Atrial Fibrillation & Atrial Flutter: Chronic Anticoagulation Therapy, Documentation of Current Medications in Medical Record, Screening for High Blood Pressure and F/U Documented - Current Medications Quality Measure: Measure #130: Documentation of Current Medications Documentation of Current Medications: <Current Medications Documented/Reviewed> [G8427] - Blood Pressure Screening Quality Measure: Screening for High Blood Pressure and Follow-Up Documented Does Patient Have Any of the Following: Active Dx of HTN Blood Pressure Classification: Pre-Hypertensive BP Reading Systolic Measurement: 176 Diastolic Measurement: 87 Screening for High Blood Pressure: Patient Exclusion, Hx of HTN [G9744] - Atrial Fibrillation and Atrial Flutter Quality Measure: Atrial Fibrillation & Atrial Flutter: Chronic Anticoagulation Therapy Does Patient Have Any of the Following: No CHADS2 Risk Stratification: Hypertension Risk Stratification Summary: No risk factors or only one moderate risk factor exists. [G8970] Anticoagulation Therapy: Patient Not Eligible [G8970] - Elder Abuse Suspicion Index EASI Reference Information: Katarina BRADY, Khushi C, Deedee D, Henok Wharton.Development and validation of a tool to assist physicians identification of elder abuse: The Elder Abuse Suspicion Index (EASI ). Journal of Elder Abuse and Neglect, 2008; 20 (3): 276-300.
--- NOTE | 2018-09-13 17:49 | Rehab Evaluation ---
Patient Information - Patient Information Diagnosis: Intractable back pain Ordered Treatment: PT Evaluate and Treat Status: Initial Evaluation Surgery: No History: Detail (Pt reports that he stood up from a chair on 09/11/18 and had severe pain in B legs causing his legs to give out. He fell to the floor and was unable to get himself up; his called EMS for transport to ED. Admitted for pain management.) Past Medical/Surgical Hx: PAST MEDICAL/SURGICAL HISTORY Past Surgical History bilateral shoulder rotator cuff, torn tendon nasal surgery heart cath PMH - Respiratory Hx Respiratory Disorders Yes Hx Chronic Obstructive Yes: uses Spiriva inhaler daily and Proair Pulmonary Disease (COPD) inhaler PRN Hx Sleep Apnea Yes: uses CPAP Hx of CPAP Yes PMH - Cardiovascular Hx Cardiovascular Disorders Yes Hx Abnormal EKG Yes Hx Cardiac Catheterization Yes Hx Chest Pain Heart cath 08/20/18 Hx Hypertension Yes Hx Irregular Heartbeat Yes: A-fib Comment: high cholesterol PMH - Neuro Hx Neurological Disorders No PMH - GI Hx Gastrointestinal Disorders Yes Hx Gastroesophageal Reflux Yes PMH - Hx Genitourinary Disorders No PMH - Endocrine Hx Endocrine Disorders No Hx Diabetes No Hx Thyroid Disease No PMH - Musculoskeletal Hx Musculoskeletal Disorders Yes Hx Back Injury Yes: 07/11 Comment: MRI neck-C7 problems 08/2018 PMH - Psych Hx Psychiatric Problems No PMH - Hematology/Oncology Hx Hematology/Oncology No Disorders Premorbid Status: Detail (Pt reports that he was experiencing low back pain after twisting to put wood in a burner at end of July 2018. PCP referred him for physical therapy in [place]; he has had three treatment sessions and he doesn't feel like it has helped. He was ambulating independently w/o assistive device prior to onset of low back pain and of B LE pain.) Social History: Detail (Pt lives w/ in [place].) Precautions: [place], Fall - Time With Patient Treatment Procedures: Detail (PT Evaluation) Subjective Information - Subjective Information Per Patient (Pt reports pain in his back and B LE's, but also numbness, although sensation is intact to light touch. He does not elaborate when answering questions regarding history or symptoms. Pt's is present and provides some details.) Objective Data - Pain Pain Present: Yes Pain Intensity: 9 (In low back and B LEs) Pain Scale Used: Numeric (1 - 10) - Mental Status Patient Orientation: Oriented x3 - Visual Perception Appears within normal limits for therapeutic activities - ROM Within normal limits (Able to flex and extend B LE's lying supine in bed.) - Strength/Tone Not within normal limits (Grossly 3/5 in major muscle groups of B LE's.) - Coordination Appears within normal limits for therapeutic activities - Bed Mobility Needs Assist (Used bedrails to roll to side and scoot to edge of bed, independently. He required max assist for LE's to get back into bed, and he threw his upper body back, narrowly missing the bedrail. He thrashed his legs and cursed, then was able to use LE's and UE's to scoot up in bed after having the head of bed lowered. While PT and his arranged bed linens to cover him , he casually checked his phone.) - Transfers Dependent (Pt attempted to come to standing from side of bed to walker, but he felt he couldn't.) - Balance Balance Sitting: Good - Sensation Intact (Light touch on B LE's.) - Gait Detail (Unable to assess due to patient's inability to come to standing.) Therapy Assessment - Therapy Assessment Detail (Pt verbalizes high levels of pain in back and LE's, but does not exhibit any clear musculoskeletal dysfunction, and his affect is inconsistent with verbal reports. It is recommended that he undergo further medical evaluation to determine source/cause of pain. He presently is not a good candidate for inpatient physical therapy.) Problem List - Problem List Physical Therapy Problem List: Detail (1. Requires assist for bed mobility. 2. Unable to perform sit<>stand transfers. 3. Unable to attempt ambulation.) Goals - Goals Physical Therapy Goals: None formulated; anticipate patient to be transferred to [facility]. Plan - Plan Physical Therapy Plan: Pt is not a candidate for inpatient PT at this time, pending further medical workup. It is anticipated that he is being transferred to [facility] this afternoon.
== END 2018-09-13 17:02 | disposition short-term general hospital (02) ==
LOC: ER 00:23 → MEDSURG 03:01
PROVIDERS: ADMIT Family Medicine; ATTEND Internal Medicine
DX: M54.16 Radiculopathy, lumbar region (principal); J15.9 Unspecified bacterial pneumonia; I48.0 Paroxysmal atrial fibrillation; I10 Essential (primary) hypertension; G47.00 Insomnia, unspecified; J44.9 Chronic obstructive pulmonary disease, unspecified; E78.00 Pure hypercholesterolemia, unspecified; E78.5 Hyperlipidemia, unspecified; K59.03 Drug induced constipation; K21.9 Gastro-esophageal reflux disease without esophagitis; Z95.811 Presence of heart assist device; F17.210 Nicotine dependence, cigarettes, uncomplicated
CPT/HCPCS: 99285 ×2; 96376; 96374; 96375; 80053 ×2; 85027 ×2; 71046; 94640 ×2; 94760; G0378 ×2; J3490 ×2; J1885 ×2; J2405; J1170; J3360; J2270 ×2; 99217; 99220; J1650